=== PATIENT | female | born 1955 ===

== ENCOUNTER 2020-08-10 11:25 | Inpatient (IN) | payer OTHER ==
[~2020-08-10 11:25] MED LIST: Barium Sulfate w/v 2.1% Oral Susp 450 ML Bottle PO SCH
[2020-08-10] MEDS ORDERED: Piperacillin/Tazobactam 3.375 GM in Sodium Chloride 0.9% 100 ML IV SCH (15:30)
--- NOTE | 2020-08-10 15:31 | PCM.HP ---
H&P History of Present Illness - General Date of Service: 08/10/20 Admit Problem/Dx: 65-year-old lady with a history of congenital hip dysplasia, seizures, malnutrition. Patient was admitted to acute care with acute hypoxemic respiratory failure secondary to pneumonia. Hospitalization was complicated with acute kidney injury, urinary tract infection, sepsis with shock liver. the patient was transferred to our facility for further physical and occupational therapy Prior to discharge the patient was noted to have leukocytosis, elevated pro calcitonin level. as families explaining the patient's has a restraining order against her. The patient's brother has been appointed as a guardian. the patient is feeling a little bit tired. Had recent cough with sputum production. No chills. No abdominal pain but had loose bowel movements, 3 or 4 yesterday but none today. Source of Information: Patient, Provider (dr. Frausto) Generalized Pain Score (Numeric/FACES): 6 - Related Data Allergies/Adverse Reactions: Allergies Allergy/AdvReac Type Severity Reaction Status Date / Time No Known Allergies Allergy Verified 08/10/20 11:50 Home Medications: Home Meds Acetaminophen 1,000 mg PO Q6HR PRN 08/10/20 [History] Gabapentin [Neurontin] 200 mg PO TID 08/10/20 [History] traZODone HCl [Trazodone HCl] 50 mg PO BEDTIME 08/10/20 [History] Past Medical History HEENT History: Reports: Impaired Vision, Other (See Below) Other HEENT History: Since admission to [facility] Cardiovascular History: Reports: Afib Genitourinary History: Reports: Urinary Incontinence, Other (See Below) Other Genitourinary History: at times Musculoskeletal History: Reports: Arthritis, Osteoarthritis Psychiatric History: Reports: Anxiety, Depression Hematologic History: Reports: Anemia - Infectious Disease History Infectious Disease History: Reports: Chicken Pox, Measles, Mumps - Past Surgical History HEENT Surgical History: Reports: None Cardiovascular Surgical History: Reports: None Female Surgical History: Reports: None Musculoskeletal Surgical History: Reports: Hip Replacement, Other (See Below) Other Musculoskeletal Surgeries/Procedures:: bilateral and total 10 surgeries on hips. Congenital hip dysplasia Social & Family History - Family History Family Medical History: No Pertinent Family History - Tobacco Use Tobacco Use Status *Q: Former Tobacco User Used Tobacco, but Quit: Yes Month/Year Tobacco Last Used: June 2011 Second Hand Smoke Exposure: No - Caffeine Use Caffeine Use: Reports: Coffee - Recreational Drug Use Recreational Drug Use: No H&P Review of Systems - Review of Systems: Review Of Systems: See Below General: Reports: Chills, Weakness. Denies: Fever Pulmonary: Denies: Shortness of Breath Cardiovascular: Reports: Edema. Denies: Chest Pain Gastrointestinal: Reports: Diarrhea. Denies: Abdominal Pain Genitourinary: Denies: Dysuria Neurological: Denies: Confusion Exam - Exam Exam: See Below - Exam Quality Assessment: No: Supplemental Oxygen General: Alert, Oriented, Other (cachectic) Neck: Supple Lungs: Clear to Auscultation, Normal Respiratory Effort. No: Wheezing Cardiovascular: Regular Rate, Regular Rhythm GI/Abdominal Exam: Normal Bowel Sounds, Soft, Non-Tender Extremities: Pedal Edema Neuro Extensive - Mental Status: Alert, Oriented x3, Normal Mood/Affect - Patient Data Lab Results Last 24 hrs: laboratory studies were reviewed from [facility] On 10 August procralcitonin level was 9.5 White blood cell count 12.9, hemoglobin 8.2, platelet count 237 B UN 26, sodium 138, potassium 3.6, creatinine 0.7 - Problem List (1) Weakness acquired in intensive care unit SNOMED Code(s): 18932874 ICD Code: R53.1 - WEAKNESS Status: Acute Current Visit: Yes (2) Leukocytosis SNOMED Code(s): 879040023, 069231144 ICD Code: D72.829 - ELEVATED WHITE BLOOD CELL COUNT, UNSPECIFIED Status: Acute Current Visit: Yes (3) Anemia SNOMED Code(s): 964405673 ICD Code: D64.9 - ANEMIA, UNSPECIFIED Status: Acute Current Visit: Yes (4) Seizure disorder SNOMED Code(s): 949985467 ICD Code: G40.909 - EPILEPSY, UNSP, NOT INTRACTABLE, WITHOUT STATUS EPILEPTICUS Status: Acute Current Visit: Yes (5) Malnutrition of moderate degree SNOMED Code(s): 733714462 ICD Code: E44.0 - MODERATE PROTEIN-CALORIE MALNUTRITION Status: Acute Current Visit: Yes Problem List Initiated/Reviewed/Updated: Yes Orders Last 24hrs: Active Orders 24 hr Category Date Time Status Influenza Vaccine Charge [RC] .DISCHARGE Care 08/10/20 14:25 Active Abdomen Pelvis w Cont [CT] Routine Exams 08/10/20 15:21 Ordered Chest w Cont [CT] Routine Exams 08/10/20 15:22 Ordered BASIC METABOLIC PANEL,BMP [CHEM] AM Lab 08/11/20 05:15 Ordered CBC WITH AUTO DIFF [HEME] AM Lab 08/11/20 05:15 Ordered CLOSTRIDIUM DIFFICILE TOX RFLX [MREF] Routine Lab 08/10/20 15:22 Ordered CULTURE URINE [RM] Routine Lab 08/10/20 15:20 Ordered Gabapentin [Neurontin] Med 08/10/20 21:00 Ordered 200 mg PO TID Pharmacy to Dose - InFluenza V [Pharmacy to Dose - Med 08/11/20 09:00 Active InFluenza Vaccine] 1 each IM DAILY Piperacillin/Tazobactam [Zosyn] 3.375 gm Med 08/10/20 15:30 Ordered Sodium Chloride 0.9% [Normal Saline] 100 ml IV Q8H traZODone Med 08/10/20 21:00 Ordered 50 mg PO BEDTIME Isolation [COMM] Stat Oth 08/10/20 15:23 Ordered Medication Orders Gabapentin (Neurontin) 200 mg PO TID [facility] Piperacillin Sod/Tazobactam (Sod 3.375 gm/ Sodium Chloride) 100 mls @ 200 mls/hr IV Q8H [facility] Influenza Virus Vaccine (Pharmacy To Dose - Influenza Vaccine) 1 each IM DAILY [facility] Trazodone HCl (Trazodone) 50 mg PO BEDTIME [facility] Assessment/Plan Comment:: Hospitalization was complicated with acute kidney injury, urinary tract infection, sepsis with shock liver. the patient was transferred to our facility for further physical and occupational therapy Prior to discharge the patient was noted to have leukocytosis, elevated pro calcitonin level. recent leukocytosis, elevated pro-calcitonin level Was followed by ID and recommendation was to do CT chest, abdomen, pelvis Recommendation was to continue treatment with Zosyn It appears that the leukocytosis was actually improving With the diarrhea will also check for C. difficile Urine analysis and culture Malnutrition vitamin D deficiency Lower extremity edema was on TPN earlier Nutrition consults Nutritional supplements Use Zackary stocking Acute hypoxemic respiratory failure secondary to pneumonia Appears resolved history of seizure disorder Now off medication We'll monitor CODE STATUS was discussed The patient wants to be full code brother is the power of ultrasound technologist sonographer Apparently the does not know that the patient is in our institution and the patient would not want him to know it. d/w dr. Frausto
[2020-08-10] MEDS ORDERED: Ondansetron 4 MG/2 ML SDV IVPUSH PRN (15:40)
[2020-08-10] MEDS ORDERED: Iopamidol 612 MG/ML 100 ML Bottle IVPUSH ONE (15:40)
[2020-08-10] MEDS ORDERED: Temazepam 15 MG Cap PO PRN (15:40)
[2020-08-10] MEDS ORDERED: Piperacillin/Tazobactam 3.375 GM in Sodium Chloride 0.9% 100 ML IV ONE (16:00)
[2020-08-10] MEDS: Sodium Chloride 0.9% 10 ML Syringe FLUSH PRN ×2 (16:42→22:44)
[2020-08-10] MEDS: Acetaminophen 325 MG Tab PO PRN (20:22)
[2020-08-10] MEDS: Gabapentin 100 MG Cap PO SCH (20:23)
[2020-08-10] MEDS: traZODone 50 MG Tab PO SCH (20:23)
[2020-08-10] MEDS: Heparin Sodium 5,000 Units/ML Vial SUBCUT SCH (22:42)
[2020-08-11] MEDS: Acetaminophen 325 MG Tab PO PRN ×2 (00:31→14:12)
[2020-08-11] MEDS: Sodium Chloride 0.9% 10 ML Syringe FLUSH PRN (00:33)
[2020-08-11] MEDS: Piperacillin/Tazobactam 3.375 GM in Sodium Chloride 0.9% 100 ML IV SCH ×3 (00:34→17:38)
[2020-08-11] MEDS: Heparin Sodium 5,000 Units/ML Vial SUBCUT SCH (05:48)
[2020-08-11] MEDS: Barium Sulfate w/v 2.1% Oral Susp 450 ML Bottle PO SCH ×2 (06:37→08:16)
[2020-08-11 06:56] LABS: ANION GAP 13.5 mEq/L (7-13); CHLORIDE,CL 108 mmol/L (98-107); SODIUM,NA 142 mmol/L (136-145)
[2020-08-11] MEDS: Gabapentin 100 MG Cap PO SCH ×3 (08:15→22:05)
[2020-08-11] MEDS ORDERED: Iopamidol 612 MG/ML 100 ML Bottle IVPUSH ONE (09:00)
[2020-08-11] MEDS ORDERED: LORazepam 1 MG Tab PO PRN (13:03)
--- NOTE | 2020-08-11 13:42 | CT ---
EXAMINATION: Chest Abdomen Pelvis w Cont SEX: Female AGE: 65 years CLINICAL HISTORY: 65-year-old 112 pound female with abnormally elevated white blood cell count (leukocytosis). Scan technique: Volume acquisition of data from the chest, abdomen and pelvis obtained after oral ingestion 2 bottles Redicat barium and during/after intravenous infusion 100 cc nonionic Isovue contrast at 3 cc/s via injector while patient was lying supine on the Siemens multislice scanner [place], [place]. All data archived in the PACS system for storage, reformatting axial/sagittal/coronal planes and study. Interpretation: Abnormal. 1. Large dependent subpulmonic pleural effusions filling over one-third of both hemithoraces. 2. Underlying right upper lobe and bilateral lower lobe atelectasis (infiltrates?). No air bronchograms. No peripheral interstitial "groundglass" lung densities. No significant hilar or mediastinal lymphadenopathy. 3. Large heart but no pulmonary vascular congestion or alveolar edema. No pericardial effusion. 4. Normal caliber thoracic aorta. No sign of aneurysm or retroperitoneal dissection. 5. Apical pleural scarring. No suspicious lung mass. 6. Bilateral total hip replacements (orthopedic prosthesis). Chronic multilevel lower thoracic disc disease. 7. Distended gallbladder RUQ. No gallstones. Liver, stomach, spleen, pancreas and adrenal glands unremarkable. Symmetric normal kidneys, i.e. normal size, configuration and axis. No renal cortical mass, nephrolithiasis or signs of obstructive uropathy. Bladder obscured by prosthetic "hardening" artifacts. 8. Calcifications normal caliber abdominal aorta. No sign of aortoiliac aneurysm. No abdominal mass lesion, mesenteric or retroperitoneal lymphadenopathy, or free intraperitoneal air. No bowel obstruction. CONCLUSION: Large bibasilar pleural effusions. Underlying multilobar atelectasis. Total hip replacements. Chronic multilevel disc disease. No tumor mass or lymphadenopathy.
[2020-08-11] MEDS: Lidocaine 5% 700 MG Patch TRDERM SCH (14:11)
--- NOTE | 2020-08-11 15:08 | PCM.PN ---
- General Info Date of Service: 08/11/20 Admission Dx/Problem (Free Text): 65-year-old lady with a history of congenital hip dysplasia, seizures, malnutrition. Patient was admitted to acute care with acute hypoxemic respiratory failure secondary to pneumonia. Hospitalization was complicated with acute kidney injury, urinary tract infection, sepsis with shock liver. the patient was transferred to our facility for further physical and occupational therapy Prior to discharge the patient was noted to have leukocytosis, elevated pro calcitonin level. per the sister: the patient's has a restraining order against her. The patient's brother has been appointed as a guardian. has had mod to severe headache associated with anxiety overnight, has been crying on/off continued to have diarrhea with incontinence no abd pain, no fever has edema and sob Functional Status: Reports: Tolerating Diet, Ambulating - Review of Systems Pulmonary: Reports: Shortness of Breath Cardiovascular: Reports: Edema. Denies: Chest Pain Gastrointestinal: Reports: Diarrhea. Denies: Abdominal Pain Genitourinary: Denies: Dysuria Neurological: Denies: Confusion - Patient Data Vitals - Most Recent: Last Vital Signs Temp 99.1 F 08/11/20 08:00 Pulse 96 08/11/20 08:00 Resp 18 08/11/20 08:00 BP 114/74 08/11/20 08:00 Pulse Ox 94 L 08/11/20 08:00 Weight - Most Recent: 114 lb 3.2 oz I&O - Last 24 Hours: Intake & Output 08/10/20 08/11/20 08/11/20 22:59 06:59 14:59 Intake Total 175 302 450 Output Total 500 Balance 175 -198 450 Lab Results Last 24 Hours: Laboratory Results - last 24 hr 08/10/20 08/11/20 08/11/20 Range/Units 17:02 06:06 06:06 WBC 10.9 H (5.0-10.0) 10^3/uL RBC 2.42 L (4.2-5.4) 10^6/uL Hgb 7.5 L (12.0-16.0) g/dL Hct 23.5 L (37.0-47.0) % MCV 97.1 (80-100) fL MCH 31.0 (27.0-34.0) pg MCHC 31.9 L (33.0-35.0) g/dL Plt Count 297 (150-450) 10^3/uL Neut % (Auto) 78.0 H (42.2-75.2) % Lymph % (Auto) 9.1 L (20.5-50.1) % Thurston % (Auto) 11.0 H (2-8) % Eos % (Auto) 1.7 (1.0-3.0) % Baso % (Auto) 0.2 (0.0-1.0) % Sodium 142 (136-145) mmol/L Potassium 3.5 (3.5-5.1) mmol/L Chloride 108 H (98-107) mmol/L Carbon Dioxide 24 (21-32) mmol/L Anion Gap 13.5 H (7-13) mEq/L BUN 18 (7-18) mg/dL Creatinine 0.76 (0.55-1.02) mg/dL Est Cr Clr Drug Dosing 61.15 mL/min Estimated GFR (MDRD) > 60 Glucose 77 (74-99) mg/dL POC Glucose 121 H (70-105) mg/dl Calcium 7.4 L (8.5-10.1) mg/dL Phosphorus 3.9 (2.6-4.7) mg/dL Magnesium 1.4 L (1.8-2.4) mg/dL Med Orders - Current: Current Medications Acetaminophen (Tylenol) 650 mg PO Q4H PRN PRN Reason: Pain (Mild 1-3)/fever Last Admin: 08/11/20 14:12 Dose: 650 mg Documented by: Hydrocodone Bitart/Acetaminophen (Dewy Rose 325-5 Mg) 1 tab PO Q4H PRN PRN Reason: Pain (moderate 4-6) Furosemide (Lasix) 20 mg PO DAILY [facility] Gabapentin (Neurontin) 200 mg PO TID [facility] Last Admin: 08/11/20 14:11 Dose: 200 mg Documented by: Piperacillin Sod/Tazobactam (Sod 3.375 gm/ Sodium Chloride) 100 mls @ 200 mls/hr IV Q8H [facility] Last Admin: 08/11/20 08:16 Dose: 200 mls/hr Documented by: Influenza Virus Vaccine (Pharmacy To Dose - Influenza Vaccine) 1 each IM DAILY [facility] Last Admin: 08/11/20 14:14 Dose: Not Given Documented by: Lidocaine (Lidoderm 5%) 700 mg TRDERM DAILY [facility] Last Admin: 08/11/20 14:11 Dose: 700 mg Documented by: Lorazepam (Ativan) 1 mg PO Q6H PRN PRN Reason: anxiety, headache Last Admin: 08/11/20 14:12 Dose: 1 mg Documented by: Magnesium Oxide (Magnesium Oxide) 250 mg PO BIDMEALS [facility] Stop: 08/12/20 18:01 Last Admin: 08/11/20 14:11 Dose: 250 mg Documented by: Miscellaneous Information (Remove Patch) 1 ea TRDERM BEDTIME [facility] Multivitamins/Minerals (Vitamins And Minerals) 1 tab PO WITHBREAKFAST [facility] Ondansetron HCl (Zofran) 4 mg IVPUSH Q6H PRN PRN Reason: Nausea/Vomiting Oxycodone HCl (Oxycodone) 5 mg PO Q6H PRN PRN Reason: Pain (severe 7-10) Potassium Chloride (Klor-Con 10) 20 meq PO BEDTIME [facility] Sodium Chloride (Saline Flush) 10 ml FLUSH ASDIRECTED PRN PRN Reason: Keep Vein Open Last Admin: 08/11/20 00:33 Dose: 10 ml Documented by: Trazodone HCl (Trazodone) 50 mg PO BEDTIME [facility] Last Admin: 08/10/20 20:23 Dose: 50 mg Documented by: Vancomycin HCl (Vancocin 125 Mg Capsule) 125 mg PO QID [facility] Discontinued Medications Barium Sulfate (Readi-Cat 2) 450 ml PO Q1H [facility] Stop: 08/11/20 08:01 Last Admin: 08/11/20 08:16 Dose: 450 ml Documented by: Heparin Sodium (Porcine) (Heparin Sodium) 5,000 units SUBCUT Q8HR [facility] Last Admin: 08/11/20 05:48 Dose: 5,000 units Documented by: Piperacillin Sod/Tazobactam (Sod 3.375 gm/ Sodium Chloride) 100 mls @ 200 mls/hr IV Q6H [facility] Piperacillin Sod/Tazobactam (Sod 3.375 gm/ Sodium Chloride) 100 mls @ 200 mls/hr IV ONETIME ONE Stop: 08/10/20 16:29 Last Admin: 08/10/20 16:41 Dose: 200 mls/hr Documented by: Iopamidol (Isovue-300 (61%)) 100 ml IVPUSH ONETIME ONE Stop: 08/10/20 15:41 Last Admin: 08/10/20 22:45 Dose: Not Given Documented by: Iopamidol (Isovue-300 (61%)) 100 ml IVPUSH ONETIME ONE Stop: 08/11/20 09:01 Last Admin: 08/11/20 09:19 Dose: 100 ml Documented by: Temazepam (Restoril) 15 mg PO BEDTIME PRN PRN Reason: Sleep Last Admin: 08/11/20 02:16 Dose: 15 mg Documented by: - Exam General: Alert, Oriented, Other (cachectic) Lungs: Decreased Breath Sounds Cardiovascular: Regular Rate, Regular Rhythm GI/Abdominal Exam: Normal Bowel Sounds, Soft, Non-Tender Extremities: Pedal Edema Skin: Warm, Dry Neurological: No New Focal Deficit Psy/Mental Status: Alert, Anxious Sepsis Event Note - Evaluation Sepsis Screening Result: No Definite Risk - Focused Exam Vital Signs: Vital Signs Temp Pulse Resp BP Pulse Ox 08/11/20 08:00 99.1 F 96 18 114/74 94 L - Problem List & Annotations (1) Weakness acquired in intensive care unit SNOMED Code(s): 05169756 Code(s): R53.1 - WEAKNESS Status: Acute Current Visit: Yes (2) Leukocytosis SNOMED Code(s): 824373412, 553849379 Code(s): D72.829 - ELEVATED WHITE BLOOD CELL COUNT, UNSPECIFIED Status: Acute Current Visit: Yes (3) Anemia SNOMED Code(s): 699679651 Code(s): D64.9 - ANEMIA, UNSPECIFIED Status: Acute Current Visit: Yes (4) Seizure disorder SNOMED Code(s): 164006299 Code(s): G40.909 - EPILEPSY, UNSP, NOT INTRACTABLE, WITHOUT STATUS EPILEPTIC US Status: Acute Current Visit: Yes (5) Malnutrition of moderate degree SNOMED Code(s): 443004637 Code(s): E44.0 - MODERATE PROTEIN-CALORIE MALNUTRITION Status: Acute Current Visit: Yes (6) Pleural effusion SNOMED Code(s): 00380120 Code(s): J90 - PLEURAL EFFUSION, NOT ELSEWHERE CLASSIFIED Status: Acute Current Visit: Yes (7) Diarrhea SNOMED Code(s): 81122166 Code(s): R19.7 - DIARRHEA, UNSPECIFIED Status: Acute Current Visit: Yes - Problem List Review Problem List Initiated/Reviewed/Updated: Yes - My Orders Last 24 Hours: My Active Orders 08/10/20 14:25 Influenza Vaccine Charge [RC] .DISCHARGE 08/10/20 15:23 Isolation [COMM] Stat 08/10/20 15:40 Patient Status [ADT] Routine Oxygen Therapy [RC] .PRN Up With Assistance [RC] ASDIRECTED VTE/DVT Education [RC] , Vital Signs [RC] 08,20 Acetaminophen [TylenoL] 650 mg PO Q4H PRN Ondansetron [Zofran] 4 mg IVPUSH Q6H PRN Sodium Chloride 0.9% [Saline Flush] 10 ml FLUSH ASDIRECTED PRN Peripheral IV Insertion Adult [OM.PC] Routine Saline Lock Insert [OM.PC] Routine Resuscitation Status Routine 08/10/20 15:42 Antiembolic Devices [RC] 08,20 Peripheral IV Care [RC] 08,20 Antiembolic Hose [OM.PC] Per Unit Routine 08/10/20 15:43 OT Evaluation and Treatment [CONS] Routine PT Evaluation and Treatment [CONS] Routine 08/10/20 16:42 Central Line Assessment [RC] 08/10/20 16:43 Communication Order [RC] 08/10/20 Dinner Regular Diet [DIET] 08/10/20 18:30 CLOSTRIDIUM DIFFICILE TOX RFLX [MREF] Routine 08/10/20 21:00 Gabapentin [Neurontin] 200 mg PO TID traZODone 50 mg PO BEDTIME 08/11/20 00:00 Piperacillin/Tazobactam [Zosyn] 3.375 gm Sodium Chloride 0.9% [Normal Saline] 100 ml IV Q8H 08/11/20 00:40 CULTURE URINE [RM] Routine 08/11/20 09:00 Pharmacy to Dose - InFluenza V [Pharmacy to Dose - InFluenza Vaccine] 1 each IM DAILY 08/11/20 09:05 Communication Order [RC] DAILY 08/11/20 09:43 SCD [Sequential Compression Device] [OM.PC] Routine 08/11/20 09:44 Antiembolic Devices [RC] PER UNIT ROUTINE 08/11/20 09:45 Magnesium Oxide 250 mg PO BIDMEALS 08/11/20 13:00 Lidocaine 5% [Lidoderm 5%] 700 mg TRDERM DAILY 08/11/20 13:03 LORazepam [Ativan] 1 mg PO Q6H PRN 08/11/20 13:04 Acetaminophen/HYDROcodone [Dewy Rose 325-5 MG] 1 tab PO Q4H PRN oxyCODONE 5 mg PO Q6H PRN 08/11/20 15:00 Furosemide [Lasix] 20 mg PO DAILY 08/11/20 17:00 Vancomycin [Vancocin 125 MG Capsule] 125 mg PO QID 08/11/20 21:00 Potassium Chloride [Klor-Con 10] 20 meq PO BEDTIME Remove Patch 1 ea TRDERM BEDTIME 08/12/20 08:00 Multivitamins/Minerals [Vitamins and Minerals] 1 tab PO WITHBREAKFAST 08/13/20 05:11 MAGNESIUM [CHEM] AM PHOSPHORUS [CHEM] AM 08/13/20 12:48 PROCALCITONIN [REF] Routine 08/14/20 05:15 BASIC METABOLIC PANEL,BMP [CHEM] AM CBC WITH AUTO DIFF [HEME] AM - Plan Plan:: Hospitalization was complicated with acute kidney injury, urinary tract infection, sepsis with shock liver. the patient was transferred to our facility for further physical and occupational therapy Prior to discharge the patient was noted to have leukocytosis, elevated pro calcitonin level. recent leukocytosis, elevated pro-calcitonin level might relate to pneumonia - as was questioned on ct - aspiration pneumonia is possible might relate to diarrhea - cdiff - check for that Urine cx: pending will continue treatment with Zosyn add flagyl b/l pleural effusion, leg edema likley related to malnutrition will encourage protein intake start lasix with potassium supplement follow elytes periodically Malnutrition vitamin D deficiency Lower extremity edema was on TPN earlier Nutrition consults Nutritional supplements Use Zackary stocking Acute hypoxemic respiratory failure secondary to pneumonia Appears resolved history of seizure disorder Now off medication We'll monitor anxiety, headache will add ativan prn for anxiety tylenol, hydrocodone, oxycodone as needed for mild, moderate, severe pain CODE STATUS was discussed The patient wants to be full code dvt prophylaxis due to very low sq fat will hold lovenox, heparin use scd and mobilization brother is the power of staff attorney Apparently the does not know that the patient is in our institution and the patient would not want him to know it. d/w pt and sister
[2020-08-11] MEDS: Furosemide 20 MG Tab PO SCH (17:36)
[2020-08-11] MEDS: Vancomycin 125 MG Cap PO SCH ×2 (17:36→22:06)
[2020-08-11] MEDS: oxyCODONE 5 MG Tab PO PRN (17:45)
[2020-08-11] MEDS ORDERED: Acetaminophen 325 MG Tab PO SCH (21:00)
[2020-08-11] MEDS ORDERED: LORazepam 0.5 MG Tab PO SCH (21:00)
[2020-08-11] MEDS: Acetaminophen 325 MG Tab PO SCH (22:03)
[2020-08-11] MEDS: LORazepam 1 MG Tab PO SCH (22:04)
[2020-08-11] MEDS: traZODone 50 MG Tab PO SCH (22:05)
[2020-08-11] MEDS: Naproxen 250 MG Tab PO SCH (22:05)
[2020-08-11] MEDS: Potassium Chloride 10 MEQ Tab.ER PO SCH (22:06)
[2020-08-12] MEDS: Piperacillin/Tazobactam 3.375 GM in Sodium Chloride 0.9% 100 ML IV SCH ×3 (00:14→15:31)
[2020-08-12] MEDS: Sodium Chloride 0.9% 10 ML Syringe FLUSH PRN ×2 (00:14→07:32)
[2020-08-12] MEDS: LORazepam 1 MG Tab PO SCH ×2 (09:11→22:08)
[2020-08-12] MEDS: Multivitamins, Therapeutic with Minerals Tab PO SCH (09:11)
[2020-08-12] MEDS: Furosemide 20 MG Tab PO SCH (09:11)
[2020-08-12] MEDS: Naproxen 250 MG Tab PO SCH (09:11)
[2020-08-12] MEDS: Gabapentin 100 MG Cap PO SCH ×3 (09:11→22:09)
[2020-08-12] MEDS: Vancomycin 125 MG Cap PO SCH ×4 (09:12→22:08)
[2020-08-12] MEDS: Acetaminophen 325 MG Tab PO SCH ×3 (09:12→22:08)
[2020-08-12] MEDS: Lidocaine 5% 700 MG Patch TRDERM SCH (09:12)
--- NOTE | 2020-08-12 11:04 | PCM.PN ---
- General Info Date of Service: 08/12/20 Admission Dx/Problem (Free Text): 65-year-old lady with a history of congenital hip dysplasia, seizures, malnutrition. Patient was admitted to acute care with acute hypoxemic respiratory failure secondary to pneumonia. Hospitalization was complicated with acute kidney injury, urinary tract infection, sepsis with shock liver. the patient was transferred to our facility for further physical and occupational therapy Prior to discharge the patient was noted to have leukocytosis, elevated pro calcitonin level. seems in better mood today, not appearing depressed the watery BMs are turning into more soft stool no associated abd pain no fever Functional Status: Reports: Pain Controlled, Tolerating Diet. Denies: Ambulating - Review of Systems General: Reports: Weakness Cardiovascular: Reports: Edema. Denies: Chest Pain Gastrointestinal: Reports: Diarrhea (soft stool, not watery). Denies: Abdominal Pain Genitourinary: Denies: Dysuria Neurological: Denies: Confusion Psychiatric: Reports: Mood Lability - Patient Data Vitals - Most Recent: Last Vital Signs Temp 98.3 F 08/12/20 08:23 Pulse 86 08/12/20 08:23 Resp 20 08/12/20 08:23 BP 122/81 08/12/20 08:23 Pulse Ox 96 08/12/20 08:23 Weight - Most Recent: 115 lb 3.2 oz I&O - Last 24 Hours: Intake & Output 08/11/20 08/12/20 08/12/20 22:59 06:59 14:59 Intake Total 400 500 Balance 400 500 Abdoul Results Last 24 Hours: Microbiology 08/10/20 18:30 Clostridioides difficile (PCR) - Final Stool / Feces - Stool, Liquid Clostridioides difficile Toxin Assay - Final 08/11/20 00:40 Urine Culture - Preliminary Urine, Clean Catch Med Orders - Current: Current Medications Acetaminophen (Tylenol) 650 mg PO Q4H PRN PRN Reason: Pain (Mild 1-3)/fever Last Admin: 08/11/20 14:12 Dose: 650 mg Documented by: Acetaminophen (Tylenol) 650 mg PO TID [facility] Last Admin: 08/12/20 09:12 Dose: 650 mg Documented by: Hydrocodone Bitart/Acetaminophen ([place] 325-5 Mg) 1 tab PO Q4H PRN PRN Reason: Pain (moderate 4-6) Furosemide (Lasix) 20 mg PO DAILY [facility] Last Admin: 08/12/20 09:11 Dose: 20 mg Documented by: Gabapentin (Neurontin) 200 mg PO TID [facility] Last Admin: 08/12/20 09:11 Dose: 200 mg Documented by: Piperacillin Sod/Tazobactam (Sod 3.375 gm/ Sodium Chloride) 100 mls @ 200 mls/hr IV Q8H [facility] Last Infusion: 08/12/20 08:17 Dose: Infused Documented by: Influenza Virus Vaccine (Pharmacy To Dose - Influenza Vaccine) 1 each IM DAILY [facility] Last Admin: 08/12/20 09:15 Dose: Not Given Documented by: Lidocaine (Lidoderm 5%) 700 mg TRDERM DAILY [facility] Last Admin: 08/12/20 09:12 Dose: 700 mg Documented by: Lorazepam (Ativan) 1 mg PO BID [facility] Last Admin: 08/12/20 09:11 Dose: 1 mg Documented by: Magnesium Oxide (Magnesium Oxide) 250 mg PO BIDMEALS [facility] Stop: 08/12/20 18:01 Last Admin: 08/12/20 09:11 Dose: 250 mg Documented by: Miscellaneous Information (Remove Patch) 1 ea TRDERM BEDTIME [facility] Last Admin: 08/11/20 22:07 Dose: 1 ea Documented by: Multivitamins/Minerals (Vitamins And Minerals) 1 tab PO WITHBREAKFAST [facility] Last Admin: 08/12/20 09:11 Dose: 1 tab Documented by: Naproxen (Naprosyn) 250 mg PO Q12HR [facility] Last Admin: 08/12/20 09:11 Dose: 250 mg Documented by: Ondansetron HCl (Zofran) 4 mg IVPUSH Q6H PRN PRN Reason: Nausea/Vomiting Oxycodone HCl (Oxycodone) 5 mg PO Q6H PRN PRN Reason: Pain (severe 7-10) Last Admin: 08/11/20 17:45 Dose: 5 mg Documented by: Potassium Chloride (Klor-Con 10) 20 meq PO BEDTIME [facility] Last Admin: 08/11/20 22:06 Dose: 20 meq Documented by: Sodium Chloride (Saline Flush) 10 ml FLUSH ASDIRECTED PRN PRN Reason: Keep Vein Open Last Admin: 08/12/20 07:32 Dose: 10 ml Documented by: Trazodone HCl (Trazodone) 50 mg PO BEDTIME [facility] Last Admin: 08/11/20 22:05 Dose: 50 mg Documented by: Vancomycin HCl (Vancocin 125 Mg Capsule) 125 mg PO QID [facility] Last Admin: 08/12/20 09:12 Dose: 125 mg Documented by: Discontinued Medications Acetaminophen (Tylenol) 650 mg PO BID [facility] Barium Sulfate (Readi-Cat 2) 450 ml PO Q1H [facility] Stop: 08/11/20 08:01 Last Admin: 08/11/20 08:16 Dose: 450 ml Documented by: Heparin Sodium (Porcine) (Heparin Sodium) 5,000 units SUBCUT Q8HR [facility] Last Admin: 08/11/20 05:48 Dose: 5,000 units Documented by: Piperacillin Sod/Tazobactam (Sod 3.375 gm/ Sodium Chloride) 100 mls @ 200 mls/hr IV Q6H [facility] Piperacillin Sod/Tazobactam (Sod 3.375 gm/ Sodium Chloride) 100 mls @ 200 mls/hr IV ONETIME ONE Stop: 08/10/20 16:29 Last Admin: 08/10/20 16:41 Dose: 200 mls/hr Documented by: Iopamidol (Isovue-300 (61%)) 100 ml IVPUSH ONETIME ONE Stop: 08/10/20 15:41 Last Admin: 08/10/20 22:45 Dose: Not Given Documented by: Iopamidol (Isovue-300 (61%)) 100 ml IVPUSH ONETIME ONE Stop: 08/11/20 09:01 Last Admin: 08/11/20 09:19 Dose: 100 ml Documented by: Lorazepam (Ativan) 1 mg PO Q6H PRN PRN Reason: anxiety, headache Last Admin: 08/11/20 14:12 Dose: 1 mg Documented by: Lorazepam (Ativan) 0.5 mg PO BID [facility] Temazepam (Restoril) 15 mg PO BEDTIME PRN PRN Reason: Sleep Last Admin: 08/11/20 02:16 Dose: 15 mg Documented by: - Exam General: Other (cachectic) Neck: Supple Lungs: Clear to Auscultation, Normal Respiratory Effort Cardiovascular: Regular Rate, Regular Rhythm GI/Abdominal Exam: Normal Bowel Sounds, Soft, Non-Tender Back Exam: Other (edema on buttock area) Extremities: Pedal Edema Skin: Warm, Other (sacral decubitus ulcer with yellow slough, some patchy rash apearing changes, - appears improved from as pictured on [employer]'s Epic - wound care note ) Psy/Mental Status: Alert, Normal Affect, Normal Mood Sepsis Event Note - Evaluation Sepsis Screening Result: No Definite Risk - Focused Exam Vital Signs: Vital Signs Temp Pulse Resp BP Pulse Ox 08/12/20 08:23 98.3 F 86 20 122/81 96 - Problem List & Annotations (1) Weakness acquired in intensive care unit SNOMED Code(s): 77767486 Code(s): R53.1 - WEAKNESS Status: Acute Current Visit: Yes (2) Leukocytosis SNOMED Code(s): 289550868, 085571885 Code(s): D72.829 - ELEVATED WHITE BLOOD CELL COUNT, UNSPECIFIED Status: Acute Current Visit: Yes (3) Anemia SNOMED Code(s): 147136437 Code(s): D64.9 - ANEMIA, UNSPECIFIED Status: Acute Current Visit: Yes (4) Seizure disorder SNOMED Code(s): 850528319 Code(s): G40.909 - EPILEPSY, UNSP, NOT INTRACTABLE, WITHOUT STATUS EPILEPTICUS Status: Acute Current Visit: Yes (5) Malnutrition of moderate degree SNOMED Code(s): 931288765 Code(s): E44.0 - MODERATE PROTEIN-CALORIE MALNUTRITION Status: Acute Current Visit: Yes (6) Pleural effusion SNOMED Code(s): 51060973 Code(s): J90 - PLEURAL EFFUSION, NOT ELSEWHERE CLASSIFIED Status: Acute Current Visit: Yes (7) C. difficile colitis SNOMED Code(s): 997450594 Code(s): A04.72 - ENTEROCOLITIS D/T CLOSTRIDIUM DIFFICILE, NOT SPCF RECUR Status: Acute Current Visit: Yes (8) Decubitus ulcer SNOMED Code(s): 554913641 Code(s): L89.90 - PRESSURE ULCER OF UNSPECIFIED SITE, UNSPECIFIED STAGE Status: Acute Current Visit: Yes - Problem List Review Problem List Initiated/Reviewed/Updated: Yes - My Orders Last 24 Hours: My Active Orders 08/11/20 13:00 Lidocaine 5% [Lidoderm 5%] 700 mg TRDERM DAILY 08/11/20 13:04 Acetaminophen/HYDROcodone [[place] 325-5 MG] 1 tab PO Q4H PRN oxyCODONE 5 mg PO Q6H PRN 08/11/20 15:00 Furosemide [Lasix] 20 mg PO DAILY 08/11/20 17:00 Vancomycin [Vancocin 125 MG Capsule] 125 mg PO QID 08/11/20 21:00 Acetaminophen [TylenoL] 650 mg PO TID LORazepam [Ativan] 1 mg PO BID Naproxen [Naprosyn] 250 mg PO Q12HR Potassium Chloride [Klor-Con 10] 20 meq PO BEDTIME Remove Patch 1 ea TRDERM BEDTIME 08/12/20 08:00 Multivitamins/Minerals [Vitamins and Minerals] 1 tab PO WITHBREAKFAST 08/12/20 09:33 Wound Care [RC] Q12HR 08/12/20 09:38 Specialty Bed [OM.PC] Routine 08/13/20 05:11 MAGNESIUM [CHEM] AM PHOSPHORUS [CHEM] AM 08/13/20 12:48 PROCALCITONIN [REF] Routine 08/14/20 05:15 BASIC METABOLIC PANEL,BMP [CHEM] AM CBC WITH AUTO DIFF [HEME] AM - Plan Plan:: Hospitalization was complicated with acute kidney injury, urinary tract infection, sepsis with shock liver. the patient was transferred to our facility for further physical and occupational therapy Prior to discharge the patient was noted to have leukocytosis, elevated pro calcitonin level. recent leukocytosis, elevated pro-calcitonin level might relate to pneumonia - as was questioned on ct - aspiration pneumonia is possible likely related to c. diff Ucx- contaminant - already on Zosyn will continue treatment with Zosyn - plan to stop on Friday if no new events will not add flagyl - added Vanc PO to cover C diff, cont zosyn to cover asp. pneumonia b/l pleural effusion, leg edema likely related to malnutrition will encourage protein intake cont lasix with potassium supplement follow elytes on Friday Malnutrition vitamin D deficiency Lower extremity edema was on TPN earlier Nutrition consults Nutritional supplements Use Zackary stocking anemia hgb 7.5 likely anemia of chronic dx. cont nutrition support, MVI check iron, b12, folate Decubitus ulcer will cont wound care per [facility] rec's on low pressure egg crate frequent repositioning Acute hypoxemic respiratory failure secondary to pneumonia Appears resolved history of seizure disorder Now off medication We'll monitor anxiety, headache will add ativan prn for anxiety tylenol, hydrocodone, oxycodone as needed for mild, moderate, severe pain CODE STATUS was discussed on admission The patient wants to be full code dvt prophylaxis due to very low sq fat will hold lovenox, heparin use scd and mobilization brother is the power of production quality manager - called today with update [phone] - dcds message Apparently the does not know that the patient is in our institution and the patient would not want him to know it.
[2020-08-12] MEDS: Pantoprazole 40 MG Tab.CR PO SCH (18:51)
--- NOTE | 2020-08-12 19:13 | PCM.SN.2 ---
- Free Text/Narrative Note: small amount of blood noted in stool no abd pain likely related to diarrhea and irritation obtained CBC- hgb is stable recheck in AM I will stop NSAID add protonix for potential upper gi source - but it appears less likely
[2020-08-12] MEDS: Potassium Chloride 10 MEQ Tab.ER PO SCH (22:08)
[2020-08-12] MEDS: traZODone 50 MG Tab PO SCH (22:09)
[2020-08-13] MEDS: Piperacillin/Tazobactam 3.375 GM in Sodium Chloride 0.9% 100 ML IV SCH ×2 (01:00→07:45)
[2020-08-13] MEDS: Pantoprazole 40 MG Tab.CR PO SCH ×2 (06:45→16:19)
[2020-08-13] MEDS: Furosemide 20 MG Tab PO SCH (08:21)
[2020-08-13] MEDS: Vancomycin 125 MG Cap PO SCH ×4 (08:21→20:19)
[2020-08-13] MEDS: LORazepam 1 MG Tab PO SCH ×2 (08:22→20:18)
[2020-08-13] MEDS: Gabapentin 100 MG Cap PO SCH ×3 (08:22→20:19)
[2020-08-13] MEDS: Multivitamins, Therapeutic with Minerals Tab PO SCH (08:22)
[2020-08-13] MEDS: Lidocaine 5% 700 MG Patch TRDERM SCH (08:24)
[2020-08-13] MEDS: Acetaminophen 325 MG Tab PO SCH ×3 (08:24→20:18)
[2020-08-13] MEDS: oxyCODONE 5 MG Tab PO PRN (10:52)
[2020-08-13 11:20] LABS: CHLORIDE,CL 106 mmol/L (98-107); SODIUM,NA 140 mmol/L (136-145)
--- NOTE | 2020-08-13 12:31 | PCM.SN.2 ---
- Free Text/Narrative Note: has been eating fairly well, calorie count is about 1600, protein is above 90 g per day Urinating well Weight might be variable with the combination of losing weight with the diuretics and regaining nutrition continues to have frequent but more formed stools Has mild abdominal distention on examination and complaining of 7/10 abdominal pain This is likely secondary to C. difficile White blood cell count is stable Will continue vancomycin, stop Zosyn to help improve C. difficile colitis I think the colitis is more of an issue than pneumonia Follow closely for potential megacolon No further blood in the stool Discontinued nonsteroidals Started Protonix Hemoglobin is stable leg swelling is less Electrolytes are good, continue diuretics continue wound care called AIRAM Jarrett [phone] left message
[2020-08-13] MEDS: Potassium Chloride 10 MEQ Tab.ER PO SCH (20:17)
[2020-08-13] MEDS: traZODone 50 MG Tab PO SCH (20:18)
[2020-08-13] MEDS: Acetaminophen/HYDROcodone 325-5 MG Tab PO PRN (20:19)
[2020-08-14] MEDS: Acetaminophen/HYDROcodone 325-5 MG Tab PO PRN ×2 (02:10→06:21)
[2020-08-14] MEDS: Pantoprazole 40 MG Tab.CR PO SCH ×2 (06:17→16:04)
[2020-08-14] MEDS: Lidocaine 5% 700 MG Patch TRDERM SCH (08:10)
[2020-08-14] MEDS: LORazepam 1 MG Tab PO SCH ×2 (08:11→22:01)
[2020-08-14] MEDS: Gabapentin 100 MG Cap PO SCH ×3 (08:11→22:00)
[2020-08-14] MEDS: Acetaminophen 325 MG Tab PO SCH ×3 (08:11→22:02)
[2020-08-14] MEDS: Vancomycin 125 MG Cap PO SCH ×4 (08:12→22:02)
[2020-08-14] MEDS: Multivitamins, Therapeutic with Minerals Tab PO SCH (08:12)
[2020-08-14] MEDS: Furosemide 20 MG Tab PO SCH (08:12)
--- NOTE | 2020-08-14 12:54 | PCM.PN ---
- General Info Date of Service: 08/14/20 Admission Dx/Problem (Free Text): 65-year-old lady with a history of congenital hip dysplasia, seizures, malnutrition. Patient was admitted to acute care with acute hypoxemic respiratory failure secondary to pneumonia. Hospitalization was complicated with acute kidney injury, urinary tract infection, sepsis with shock liver. the patient was transferred to our facility for further physical and occupational therapy Prior to discharge the patient was noted to have leukocytosis, elevated pro calcitonin level. in the past few days it appears that the headaches has improved. The initially watery bowel movements turned into formed bowel movements and now the diarrhea stopped. There has been some associated abdominal pain that is controlled with pain medications, no no significant bloating with it. small amount of blood noted in the all movements a few days ago but that re solved. Lower extremity edema noted on admission and the patient is on diuretics. She reports good urine output. Wound care is ongoing Functional Status: Reports: Pain Controlled, Tolerating Diet (calorie counts are variable, 8313-7119 /24 hours) - Review of Systems General: Denies: Fever Pulmonary: Denies: Shortness of Breath, Wheezing Cardiovascular: Reports: Edema. Denies: Chest Pain Gastrointestinal: Reports: Abdominal Pain. Denies: Diarrhea Genitourinary: Reports: Frequency. Denies: Dysuria Neurological: Denies: Confusion Psychiatric: Reports: Mood Lability, Anxiety - Patient Data Vitals - Most Recent: Last Vital Signs Temp 98.3 F 08/14/20 08:00 Pulse 61 08/14/20 08:00 Resp 22 H 08/14/20 08:00 BP 132/83 08/14/20 08:00 Pulse Ox 96 08/14/20 08:00 Weight - Most Recent: 112 lb 6.4 oz I&O - Last 24 Hours: Intake & Output 08/13/20 08/14/20 08/14/20 22:59 06:59 14:59 Intake Total 100 100 Balance 100 100 Lab Results Last 24 Hours: Laboratory Results - last 24 hr 08/14/20 08/14/20 Range/Units 06:22 06:22 Iron 26 L (50-175) ug/dL TIBC 150 L (250-450) ug/dL % Saturation 17.3 L (20.0-50.0) % Vitamin B12 725 (193-986) pg/mL Folate 18.6 (8.6-58.9) ng/mL Abdoul Results Last 24 Hours: Microbiology 08/11/20 00:40 Urine Culture - Final Urine, Clean Catch Med Orders - Current: Current Medications Acetaminophen (Tylenol) 650 mg PO Q4H PRN PRN Reason: Pain (Mild 1-3)/fever Last Admin: 08/11/20 14:12 Dose: 650 mg Documented by: Acetaminophen (Tylenol) 650 mg PO TID [facility] Last Admin: 08/14/20 08:11 Dose: 650 mg Documented by: Hydrocodone Bitart/Acetaminophen ([place] 325-5 Mg) 1 tab PO Q4H PRN PRN Reason: Pain (moderate 4-6) Last Admin: 08/14/20 06:21 Dose: 1 tab Documented by: Furosemide (Lasix) 20 mg PO DAILY [facility] Last Admin: 08/14/20 08:12 Dose: 20 mg Documented by: Gabapentin (Neurontin) 200 mg PO TID [facility] Last Admin: 08/14/20 08:11 Dose: 200 mg Documented by: Influenza Virus Vaccine (Pharmacy To Dose - Influenza Vaccine) 1 each IM DAILY [facility] Last Admin: 08/14/20 09:35 Dose: Not Given Documented by: Lidocaine (Lidoderm 5%) 700 mg TRDERM DAILY [facility] Last Admin: 08/14/20 08:10 Dose: 700 mg Documented by: Lorazepam (Ativan) 1 mg PO BID [facility] Last Admin: 08/14/20 08:11 Dose: 1 mg Documented by: Miscellaneous Information (Remove Patch) 1 ea TRDERM BEDTIME [facility] Last Admin: 08/13/20 21:00 Dose: Not Given Documented by: Multivitamins/Minerals (Vitamins And Minerals) 1 tab PO WITHBREAKFAST [facility] Last Admin: 08/14/20 08:12 Dose: 1 tab Documented by: Ondansetron HCl (Zofran) 4 mg IVPUSH Q6H PRN PRN Reason: Nausea/Vomiting Oxycodone HCl (Oxycodone) 5 mg PO Q6H PRN PRN Reason: Pain (severe 7-10) Last Admin: 08/13/20 10:52 Dose: 5 mg Documented by: Pantoprazole Sodium (Protonix) 40 mg PO BIDAC [facility] Last Admin: 08/14/20 06:17 Dose: 40 mg Documented by: Polysaccharide Iron Complex (Ferrex 150) 150 mg PO DAILY [facility] Potassium Chloride (Klor-Con 10) 20 meq PO BEDTIME [facility] Last Admin: 08/13/20 20:17 Dose: 20 meq Documented by: Sodium Chloride (Saline Flush) 10 ml FLUSH ASDIRECTED PRN PRN Reason: Keep Vein Open Last Admin: 08/12/20 07:32 Dose: 10 ml Documented by: Trazodone HCl (Trazodone) 50 mg PO BEDTIME [facility] Last Admin: 08/13/20 20:18 Dose: 50 mg Documented by: Vancomycin HCl (Vancocin 125 Mg Capsule) 125 mg PO QID [facility] Last Admin: 08/14/20 08:12 Dose: 125 mg Documented by: Discontinued Medications Acetaminophen (Tylenol) 650 mg PO BID [facility] Barium Sulfate (Readi-Cat 2) 450 ml PO Q1H [facility] Stop: 08/11/20 08:01 Last Admin: 08/11/20 08:16 Dose: 450 ml Documented by: Heparin Sodium (Porcine) (Heparin Sodium) 5,000 units SUBCUT Q8HR [facility] Last Admin: 08/11/20 05:48 Dose: 5,000 units Documented by: Piperacillin Sod/Tazobactam (Sod 3.375 gm/ Sodium Chloride) 100 mls @ 200 mls/hr IV Q6H [facility] Piperacillin Sod/Tazobactam (Sod 3.375 gm/ Sodium Chloride) 100 mls @ 200 mls/hr IV Q8H [facility] Last Infusion: 08/13/20 08:20 Dose: Infused Documented by: Piperacillin Sod/Tazobactam (Sod 3.375 gm/ Sodium Chloride) 100 mls @ 200 mls/hr IV ONETIME ONE Stop: 08/10/20 16:29 Last Admin: 08/10/20 16:41 Dose: 200 mls/hr Documented by: Iopamidol (Isovue-300 (61%)) 100 ml IVPUSH ONETIME ONE Stop: 08/10/20 15:41 Last Admin: 08/10/20 22:45 Dose: Not Given Documented by: Iopamidol (Isovue-300 (61%)) 100 ml IVPUSH ONETIME ONE Stop: 08/11/20 09:01 Last Admin: 08/11/20 09:19 Dose: 100 ml Documented by: Lorazepam (Ativan) 1 mg PO Q6H PRN PRN Reason: anxiety, headache Last Admin: 08/11/20 14:12 Dose: 1 mg Documented by: Lorazepam (Ativan) 0.5 mg PO BID [place] Magnesium Oxide (Magnesium Oxide) 250 mg PO BIDMEALS [facility] Stop: 08/12/20 18:01 Last Admin: 08/12/20 17:09 Dose: 250 mg Documented by: Magnesium Oxide (Magnesium Oxide) 250 mg PO BID@0800,1800 [facility] Stop: 08/14/20 08:01 Last Admin: 08/14/20 08:11 Dose: 250 mg Documented by: Naproxen (Naprosyn) 250 mg PO Q12HR [facility] Last Admin: 08/12/20 09:11 Dose: 250 mg Documented by: Temazepam (Restoril) 15 mg PO BEDTIME PRN PRN Reason: Sleep Last Admin: 08/11/20 02:16 Dose: 15 mg Documented by: - Exam General: Alert, Oriented Neck: Supple Lungs: Decreased Breath Sounds (at bases). No: Rhonchi, Wheezing Cardiovascular: Regular Rhythm GI/Abdominal Exam: Normal Bowel Sounds, Soft, Non-Tender. No: Distended Extremities: Pedal Edema (trace bilateral edema, also edema of the buttocks) Skin: Warm, Other (decubitus ulcer on the sacral area) Wound/Incisions: Healing Well Psy/Mental Status: Alert Sepsis Event Note - Evaluation Sepsis Screening Result: No Definite Risk - Focused Exam Vital Signs: Vital Signs Temp Pulse Resp BP Pulse Ox 08/14/20 08:00 98.3 F 61 22 H 132/83 96 - Problem List & Annotations (1) Weakness acquired in intensive care unit SNOMED Code(s): 29828426 Code(s): R53.1 - WEAKNESS Status: Acute Current Visit: Yes (2) Leukocytosis SNOMED Code(s): 496808503, 298694853 Code(s): D72.829 - ELEVATED WHITE BLOOD CELL COUNT, UNSPECIFIED Status: Acute Current Visit: Yes (3) Anemia SNOMED Code(s): 390926143 Code(s): D64.9 - ANEMIA, UNSPECIFIED Status: Acute Current Visit: Yes (4) Seizure disorder SNOMED Code(s): 380194237 Code(s): G40.909 - EPILEPSY, UNSP, NOT INTRACTABLE, WITHOUT STATUS EPILEPTICUS Status: Acute Current Visit: Yes (5) Malnutrition of moderate degree SNOMED Code(s): 273312461 Code(s): E44.0 - MODERATE PROTEIN-CALORIE MALNUTRITION Status: Acute Current Visit: Yes (6) Pleural effusion SNOMED Code(s): 23068100 Code(s): J90 - PLEURAL EFFUSION, NOT ELSEWHERE CLASSIFIED Status: Acute Current Visit: Yes (7) C. difficile colitis SNOMED Code(s): 427214600 Code(s): A04.72 - ENTEROCOLITIS D/T CLOSTRIDIUM DIFFICILE, NOT SPCF RECUR Status: Acute Current Visit: Yes (8) Decubitus ulcer SNOMED Code(s): 196704095 Code(s): L89.90 - PRESSURE ULCER OF UNSPECIFIED SITE, UNSPECIFIED STAGE Status: Acute Current Visit: Yes - Problem List Review Problem List Initiated/Reviewed/Updated: Yes - My Orders Last 24 Hours: My Active Orders 08/15/20 09:00 Iron Polysaccharides Complex [Ferrex 150] 150 mg PO DAILY - Plan Plan:: Hospitalization was complicated with acute kidney injury, urinary tract infection, sepsis with shock liver. the patient was transferred to our facility for further physical and occupational therapy Prior to discharge the patient was noted to have leukocytosis, elevated pro calcitonin level. recent leukocytosis, elevated pro-calcitonin level might relate to pneumonia - as was questioned on ct - aspiration pneumonia is possible likely related to c. diff leukocytosis has been improving Stopped Zosyn - I think pneumonia resolved, the Cdiff is more relevant added Vanc PO to cover C diff diarrhea is improving Monitor for toxic megacolon Small amount of fresh blood in the stool was likely related to irritation No sign of further GI bleed Discontinued nonsteroidals Started Protonix b/l pleural effusion, leg edema likely related to malnutrition will encourage protein intake cont lasix with potassium supplement electrolytes have been stable Use Zackary stocking Malnutrition vitamin D deficiency Lower extremity edema was on TPN earlier Nutrition consults Nutritional supplements anemia hgb 7.5, 8.1 likely anemia of chronic dx. cont nutrition support, MVI low iron level and iron saturation - we'll supplement iron, normal b12, folate -continue multivitamin Decubitus ulcer will cont wound care per [employer] rec's, use medical honey on low pressure egg crate frequent repositioning Acute hypoxemic respiratory failure secondary to pneumonia Appears resolved history of seizure disorder Now off medication We'll monitor anxiety, headache will add ativan prn for anxiety tylenol, hydrocodone, oxycodone as needed for mild, moderate, severe pain CODE STATUS was discussed on admission The patient wants to be full code dvt prophylaxis due to very low sq fat will hold lovenox, heparin use scd and mobilization brother has arrived to visit, discussed with him at bedside called Kolby and gave update (POA)
[2020-08-14] MEDS ORDERED: LORazepam 1 MG Tab PO ONE (15:47)
[2020-08-14] MEDS: Potassium Chloride 10 MEQ Tab.ER PO SCH (22:00)
[2020-08-14] MEDS: traZODone 50 MG Tab PO SCH (22:01)
[2020-08-14] MEDS: oxyCODONE 5 MG Tab PO PRN (22:39)
[2020-08-15] MEDS: Acetaminophen/HYDROcodone 325-5 MG Tab PO PRN ×2 (03:25→13:42)
[2020-08-15] MEDS: Pantoprazole 40 MG Tab.CR PO SCH ×2 (06:21→17:04)
[2020-08-15] MEDS: Multivitamins, Therapeutic with Minerals Tab PO SCH (09:19)
[2020-08-15] MEDS: LORazepam 1 MG Tab PO SCH ×2 (09:20→20:21)
[2020-08-15] MEDS: Iron Polysaccharides Complex 150 MG Cap PO SCH (09:20)
[2020-08-15] MEDS: Lidocaine 5% 700 MG Patch TRDERM SCH (09:21)
[2020-08-15] MEDS: Gabapentin 100 MG Cap PO SCH ×3 (09:21→20:21)
[2020-08-15] MEDS: Furosemide 20 MG Tab PO SCH (09:21)
[2020-08-15] MEDS: Acetaminophen 325 MG Tab PO SCH ×3 (09:21→20:23)
[2020-08-15] MEDS: Vancomycin 125 MG Cap PO SCH ×4 (09:22→20:21)
[2020-08-15] MEDS: oxyCODONE 5 MG Tab PO PRN ×2 (09:35→20:21)
[2020-08-15] MEDS ORDERED: Dicyclomine 10 MG Cap PO PRN (16:50)
[2020-08-15] MEDS: Potassium Chloride 10 MEQ Tab.ER PO SCH (20:20)
[2020-08-15] MEDS: traZODone 50 MG Tab PO SCH (20:21)
[2020-08-15] MEDS: Sodium Chloride 0.9% 10 ML Syringe FLUSH PRN (21:02)
[2020-08-16] MEDS: Pantoprazole 40 MG Tab.CR PO SCH ×2 (07:03→16:37)
[2020-08-16] MEDS: Iron Polysaccharides Complex 150 MG Cap PO SCH (09:01)
[2020-08-16] MEDS: LORazepam 1 MG Tab PO SCH ×2 (09:01→21:42)
[2020-08-16] MEDS: Multivitamins, Therapeutic with Minerals Tab PO SCH (09:01)
[2020-08-16] MEDS: Vancomycin 125 MG Cap PO SCH ×4 (09:01→21:41)
[2020-08-16] MEDS: Furosemide 20 MG Tab PO SCH (09:01)
[2020-08-16] MEDS: Gabapentin 100 MG Cap PO SCH ×3 (09:01→22:34)
[2020-08-16] MEDS: Lidocaine 5% 700 MG Patch TRDERM SCH (09:02)
[2020-08-16] MEDS: Acetaminophen 325 MG Tab PO SCH ×3 (09:02→21:43)
[2020-08-16] MEDS: Sodium Chloride 0.9% 10 ML Syringe FLUSH PRN ×2 (09:05→21:44)
[2020-08-16 09:13] LABS: ANION GAP 12.3 mEq/L (7-13); CHLORIDE,CL 106 mmol/L (98-107); SODIUM,NA 141 mmol/L (136-145)
--- NOTE | 2020-08-16 13:53 | CT ---
EXAMINATION: Head wo Cont SEX: Female AGE: 65 years CLINICAL HISTORY: 65-year-old hospitalized patient injured in fall (struck back of head). No loss of consciousness and patient is not on anticoagulants. No comparison CT or MRI exams of the head available at this institution. Scan technique: Volume acquisition of data semi-emergency unenhanced CT scan of the head and brain obtained with the patient lying supine on the Siemens multislice scanner [place], [place]. All data archived in the PACS system for storage, reformatting axial/sagittal/coronal planes and study (bone/soft tissue/brain windows). Interpretation: 1. Uniformly thick bony calvarium without sign of skull fracture or underlying/contrecoup brain contusion. 2. *Focal area of decreased attenuation white matter, parietal lobe, left cerebral hemisphere without mass effect on the surrounding cerebral sulci. Ischemic infarct. No sign of acute intracerebral, intraventricular or subarachnoid bleed. 3. Mild, symmetric cerebral cortical and cerebellar atrophy. Physiologic pineal and choroid plexus calcifications. 4. No supratentorial or posterior fossa mass lesion. Cerebellum and brainstem unremarkable. No arachnoid cyst. 5. No abnormal extracerebral/intracranial epidural or subdural hematoma. 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 Atrophy. No sign of skull fracture, acute brain contusion or intracranial bleed.
[2020-08-16] MEDS ORDERED: Honey 44 ML Gel TP PRN (15:18)
[2020-08-16] MEDS: Potassium Chloride 10 MEQ Tab.ER PO SCH (21:41)
[2020-08-16] MEDS: traZODone 50 MG Tab PO SCH (21:41)
[2020-08-16] MEDS: Sertraline 50 MG Tab PO SCH (21:42)
[2020-08-16] MEDS: MICONAZOLE NITRATE 2% TOP SCH (21:48)
[2020-08-16] MEDS: Honey 44 ML Gel TP SCH (22:32)
[2020-08-17] MEDS: oxyCODONE 5 MG Tab PO PRN ×2 (06:11→16:04)
[2020-08-17] MEDS: Pantoprazole 40 MG Tab.CR PO SCH ×2 (06:13→16:04)
[2020-08-17] MEDS: Lidocaine 5% 700 MG Patch TRDERM SCH (09:28)
[2020-08-17] MEDS: LORazepam 1 MG Tab PO SCH ×2 (09:30→21:15)
[2020-08-17] MEDS: Furosemide 20 MG Tab PO SCH (09:31)
[2020-08-17] MEDS: Multivitamins, Therapeutic with Minerals Tab PO SCH (09:31)
[2020-08-17] MEDS: Gabapentin 100 MG Cap PO SCH ×3 (09:31→21:15)
[2020-08-17] MEDS: Acetaminophen 325 MG Tab PO SCH ×3 (09:32→21:15)
[2020-08-17] MEDS: Vancomycin 125 MG Cap PO SCH ×4 (09:33→21:15)
[2020-08-17] MEDS: Iron Polysaccharides Complex 150 MG Cap PO SCH (09:33)
[2020-08-17] MEDS: MICONAZOLE NITRATE 2% TOP SCH ×2 (09:34→21:16)
[2020-08-17] MEDS: Honey 44 ML Gel TP SCH ×2 (09:36→21:13)
[2020-08-17] MEDS: Acetaminophen/HYDROcodone 325-5 MG Tab PO PRN (18:13)
[2020-08-17] MEDS: Sertraline 50 MG Tab PO SCH (21:14)
[2020-08-17] MEDS: traZODone 50 MG Tab PO SCH (21:14)
[2020-08-17] MEDS: Potassium Chloride 10 MEQ Tab.ER PO SCH (21:17)
[2020-08-17] MEDS: Sodium Chloride 0.9% 10 ML Syringe FLUSH PRN (21:19)
[2020-08-18] MEDS: Pantoprazole 40 MG Tab.CR PO SCH ×2 (05:52→16:23)
[2020-08-18] MEDS: oxyCODONE 5 MG Tab PO PRN ×2 (05:54→11:58)
[2020-08-18] MEDS: Multivitamins, Therapeutic with Minerals Tab PO SCH (09:16)
[2020-08-18] MEDS: Vancomycin 125 MG Cap PO SCH ×4 (09:16→22:04)
[2020-08-18] MEDS: Iron Polysaccharides Complex 150 MG Cap PO SCH (09:16)
[2020-08-18] MEDS: Gabapentin 100 MG Cap PO SCH ×3 (09:16→22:01)
[2020-08-18] MEDS: LORazepam 1 MG Tab PO SCH ×2 (09:17→22:01)
[2020-08-18] MEDS: Furosemide 20 MG Tab PO SCH (09:17)
[2020-08-18] MEDS: Acetaminophen 325 MG Tab PO SCH ×3 (09:17→22:02)
[2020-08-18] MEDS: MICONAZOLE NITRATE 2% TOP SCH ×2 (09:20→21:59)
[2020-08-18] MEDS: Honey 44 ML Gel TP SCH ×2 (09:20→22:00)
[2020-08-18] MEDS: Lidocaine 5% 700 MG Patch TRDERM SCH (09:21)
[2020-08-18] MEDS ORDERED: Honey 44 ML Gel TP PRN (15:30)
[2020-08-18] MEDS: Sertraline 50 MG Tab PO SCH (22:01)
[2020-08-18] MEDS: traZODone 50 MG Tab PO SCH (22:01)
[2020-08-18] MEDS: Potassium Chloride 10 MEQ Tab.ER PO SCH (22:01)
[2020-08-18] MEDS: Sodium Chloride 0.9% 10 ML Syringe FLUSH PRN (22:04)
[2020-08-19] MEDS: oxyCODONE 5 MG Tab PO PRN ×4 (02:17→22:04)
[2020-08-19] MEDS: Pantoprazole 40 MG Tab.CR PO SCH ×2 (06:26→16:51)
[2020-08-19] MEDS: Iron Polysaccharides Complex 150 MG Cap PO SCH (09:01)
[2020-08-19] MEDS: Furosemide 20 MG Tab PO SCH (09:02)
[2020-08-19] MEDS: LORazepam 1 MG Tab PO SCH ×2 (09:02→22:05)
[2020-08-19] MEDS: Vancomycin 125 MG Cap PO SCH ×4 (09:02→22:02)
[2020-08-19] MEDS: Multivitamins, Therapeutic with Minerals Tab PO SCH (09:03)
[2020-08-19] MEDS: Acetaminophen 325 MG Tab PO SCH ×3 (09:03→22:05)
[2020-08-19] MEDS: Gabapentin 100 MG Cap PO SCH ×3 (09:04→22:06)
[2020-08-19] MEDS: Lidocaine 5% 700 MG Patch TRDERM SCH (09:05)
[2020-08-19] MEDS: Honey 44 ML Gel TP SCH ×2 (09:17→22:12)
[2020-08-19] MEDS: MICONAZOLE NITRATE 2% TOP SCH ×2 (09:18→22:09)
[2020-08-19] MEDS: Sodium Chloride 0.9% 10 ML Syringe FLUSH PRN ×2 (09:22→22:32)
[2020-08-19] MEDS: Potassium Chloride 10 MEQ Tab.ER PO SCH (22:02)
[2020-08-19] MEDS: traZODone 50 MG Tab PO SCH (22:03)
[2020-08-19] MEDS: Sertraline 50 MG Tab PO SCH (22:03)
[2020-08-20] MEDS: Pantoprazole 40 MG Tab.CR PO SCH ×2 (06:21→17:19)
[2020-08-20] MEDS: Multivitamins, Therapeutic with Minerals Tab PO SCH (09:03)
[2020-08-20] MEDS: Lidocaine 5% 700 MG Patch TRDERM SCH (09:03)
[2020-08-20] MEDS: Gabapentin 100 MG Cap PO SCH ×3 (09:03→21:43)
[2020-08-20] MEDS: Iron Polysaccharides Complex 150 MG Cap PO SCH (09:03)
[2020-08-20] MEDS: Acetaminophen 325 MG Tab PO SCH ×3 (09:03→21:44)
[2020-08-20] MEDS: Vancomycin 125 MG Cap PO SCH ×4 (09:04→21:43)
[2020-08-20] MEDS: LORazepam 1 MG Tab PO SCH ×2 (09:04→21:43)
[2020-08-20] MEDS: Furosemide 20 MG Tab PO SCH (09:04)
[2020-08-20] MEDS: MICONAZOLE NITRATE 2% TOP SCH ×2 (09:05→21:45)
[2020-08-20] MEDS: Honey 44 ML Gel TP SCH ×2 (09:05→21:45)
[2020-08-20] MEDS: Acetaminophen/HYDROcodone 325-5 MG Tab PO PRN (13:55)
[2020-08-20] MEDS: oxyCODONE 5 MG Tab PO PRN (19:14)
[2020-08-20] MEDS: traZODone 50 MG Tab PO SCH (21:42)
[2020-08-20] MEDS: Sertraline 50 MG Tab PO SCH (21:42)
[2020-08-20] MEDS: Potassium Chloride 10 MEQ Tab.ER PO SCH (21:43)
[2020-08-20] MEDS: Sodium Chloride 0.9% 10 ML Syringe FLUSH PRN (21:46)
[2020-08-21] MEDS: Pantoprazole 40 MG Tab.CR PO SCH ×2 (06:16→16:54)
[2020-08-21] MEDS: oxyCODONE 5 MG Tab PO PRN ×2 (06:16→12:31)
[2020-08-21] MEDS: Acetaminophen 325 MG Tab PO SCH ×3 (09:39→21:43)
[2020-08-21] MEDS: Furosemide 20 MG Tab PO SCH (09:39)
[2020-08-21] MEDS: Multivitamins, Therapeutic with Minerals Tab PO SCH (09:40)
[2020-08-21] MEDS: Iron Polysaccharides Complex 150 MG Cap PO SCH (09:40)
[2020-08-21] MEDS: LORazepam 1 MG Tab PO SCH ×2 (09:40→21:44)
[2020-08-21] MEDS: Lidocaine 5% 700 MG Patch TRDERM SCH (09:41)
[2020-08-21] MEDS: Gabapentin 100 MG Cap PO SCH ×3 (09:42→21:44)
[2020-08-21] MEDS: Acetaminophen/HYDROcodone 325-5 MG Tab PO PRN (09:43)
[2020-08-21] MEDS: Honey 44 ML Gel TP SCH ×2 (09:50→21:47)
--- NOTE | 2020-08-21 10:56 | PCM.PN ---
- General Info Date of Service: 08/21/20 Admission Dx/Problem (Free Text): 65-year-old lady with a history of congenital hip dysplasia, seizures, malnutrition. Patient was admitted to acute care with acute hypoxemic respi ratory failure secondary to pneumonia. Hospitalization was complicated with acute kidney injury, urinary tract infection, sepsis with shock liver. She was found to have C. difficile on admit. Completed IV vancomycin. Diarrhea improved. Patient was seen and evaluated today. Chart reviewed Patient doing okay. Offers no new complaint. Functional Status: Reports: Pain Controlled - Review of Systems General: Reports: No Symptoms HEENT: Reports: No Symptoms Pulmonary: Reports: No Symptoms Cardiovascular: Reports: No Symptoms Gastrointestinal: Reports: No Symptoms Genitourinary: Reports: No Symptoms Musculoskeletal: Reports: No Symptoms Skin: Reports: No Symptoms Neurological: Reports: No Symptoms Psychiatric: Reports: No Symptoms - Patient Data Vitals - Most Recent: Last Vital Signs Temp 98.8 F 08/20/20 20:00 Pulse 82 08/20/20 20:00 Resp 20 08/20/20 20:00 BP 116/58 L 08/20/20 20:00 Pulse Ox 97 08/20/20 20:00 Weight - Most Recent: 95 lb 3.2 oz I&O - Last 24 Hours: Intake & Output 08/20/20 08/21/20 08/21/20 22:59 06:59 14:59 Intake Total 400 150 Balance 400 150 Med Orders - Current: Current Medications Acetaminophen (Tylenol) 650 mg PO Q4H PRN PRN Reason: Pain (Mild 1-3)/fever Last Admin: 08/11/20 14:12 Dose: 650 mg Documented by: Acetaminophen (Tylenol) 650 mg PO TID [facility] Last Admin: 08/21/20 09:39 Dose: 650 mg Documented by: Hydrocodone Bitart/Acetaminophen ([place] 325-5 Mg) 1 tab PO Q4H PRN PRN Reason: Pain (moderate 4-6) Last Admin: 08/21/20 09:43 Dose: 1 tab Documented by: Dicyclomine HCl (Bentyl) 10 mg PO Q6H PRN PRN Reason: crampy abd pain Furosemide (Lasix) 20 mg PO DAILY [facility] Last Admin: 08/21/20 09:39 Dose: 20 mg Documented by: Gabapentin (Neurontin) 200 mg PO TID [facility] Last Admin: 08/21/20 09:42 Dose: 200 mg Documented by: Influenza Virus Vaccine (Pharmacy To Dose - Influenza Vaccine) 1 each IM DAILY [facility] Last Admin: 08/21/20 09:43 Dose: Not Given Documented by: Lidocaine (Lidoderm 5%) 700 mg TRDERM DAILY [facility] Last Admin: 08/21/20 09:41 Dose: 700 mg Documented by: Lorazepam (Ativan) 1 mg PO BID [facility] Last Admin: 08/21/20 09:40 Dose: 1 mg Documented by: Miscellaneous Information (Remove Patch) 1 ea TRDERM BEDTIME [facility] Last Admin: 08/20/20 21:47 Dose: 1 ea Documented by: Miscellaneous Medication (Medihoney) 0 ml TP BID [facility] Last Admin: 08/20/20 21:45 Dose: 1 ml Documented by: Miscellaneous Medication (Medihoney) 0 ml TP ASDIRECTED PRN PRN Reason: IF SOILED Multivitamins/Minerals (Vitamins And Minerals) 1 tab PO WITHBREAKFAST [facility] Last Admin: 08/21/20 09:40 Dose: 1 tab Documented by: Miconazole Nitrate (Cream 2%) 0 each TOP BID [facility] Last Admin: 08/20/20 21:45 Dose: 1 each Documented by: Ondansetron HCl (Zofran) 4 mg IVPUSH Q6H PRN PRN Reason: Nausea/Vomiting Oxycodone HCl (Oxycodone) 5 mg PO Q6H PRN PRN Reason: Pain (severe 7-10) Last Admin: 08/21/20 06:16 Dose: 5 mg Documented by: Pantoprazole Sodium (Protonix) 40 mg PO BIDAC [facility] Last Admin: 08/21/20 06:16 Dose: 40 mg Documented by: Polysaccharide Iron Complex (Ferrex 150) 150 mg PO DAILY [facility] Last Admin: 08/21/20 09:40 Dose: 150 mg Documented by: Potassium Chloride (Klor-Con 10) 20 meq PO BEDTIME [facility] Last Admin: 08/20/20 21:43 Dose: 20 meq Documented by: Sertraline HCl (Zoloft) 25 mg PO BEDTIME [facility] Last Admin: 08/20/20 21:42 Dose: 25 mg Documented by: Sodium Chloride (Saline Flush) 10 ml FLUSH ASDIRECTED PRN PRN Reason: Keep Vein Open Last Admin: 08/20/20 21:46 Dose: 10 ml Documented by: Trazodone HCl (Trazodone) 50 mg PO BEDTIME [facility] Last Admin: 08/20/20 21:42 Dose: 50 mg Documented by: Discontinued Medications Acetaminophen (Tylenol) 650 mg PO BID [facility] Barium Sulfate (Readi-Cat 2) 450 ml PO Q1H [facility] Stop: 08/11/20 08:01 Last Admin: 08/11/20 08:16 Dose: 450 ml Documented by: Heparin Sodium (Porcine) (Heparin Sodium) 5,000 units SUBCUT Q8HR [facility] Last Admin: 08/11/20 05:48 Dose: 5,000 units Documented by: Piperacillin Sod/Tazobactam (Sod 3.375 gm/ Sodium Chloride) 100 mls @ 200 mls/hr IV Q6H [facility] Piperacillin Sod/Tazobactam (Sod 3.375 gm/ Sodium Chloride) 100 mls @ 200 mls/hr IV Q8H [facility] Last Infusion: 08/13/20 08:20 Dose: Infused Documented by: Piperacillin Sod/Tazobactam (Sod 3.375 gm/ Sodium Chloride) 100 mls @ 200 mls/hr IV ONETIME ONE Stop: 08/10/20 16:29 Last Admin: 08/10/20 16:41 Dose: 200 mls/hr Documented by: Iopamidol (Isovue-300 (61%)) 100 ml IVPUSH ONETIME ONE Stop: 08/10/20 15:41 Last Admin: 08/10/20 22:45 Dose: Not Given Documented by: Iopamidol (Isovue-300 (61%)) 100 ml IVPUSH ONETIME ONE Stop: 08/11/20 09:01 Last Admin: 08/11/20 09:19 Dose: 100 ml Documented by: Lorazepam (Ativan) 1 mg PO Q6H PRN PRN Reason: anxiety, headache Last Admin: 08/11/20 14:12 Dose: 1 mg Documented by: Lorazepam (Ativan) 0.5 mg PO BID [facility] Lorazepam (Ativan) 1 mg PO ONETIME ONE Stop: 08/14/20 15:48 Last Admin: 08/14/20 16:04 Dose: 1 mg Documented by: Magnesium Oxide (Magnesium Oxide) 250 mg PO BIDMEALS [facility] Stop: 08/12/20 18:01 Last Admin: 08/12/20 17:09 Dose: 250 mg Documented by: Magnesium Oxide (Magnesium Oxide) 250 mg PO BID@0800,1800 [facility] Stop: 08/14/20 08:01 Last Admin: 08/14/20 08:11 Dose: 250 mg Documented by: Miscellaneous Medication (Medihoney) 0 ml TP BID [facility] Last Admin: 08/18/20 09:20 Dose: 1 ml Documented by: Miscellaneous Medication (Medihoney) 0 ml TP ASDIRECTED PRN PRN Reason: IF SOILED Naproxen (Naprosyn) 250 mg PO Q12HR [facility] Last Admin: 08/12/20 09:11 Dose: 250 mg Documented by: Temazepam (Restoril) 15 mg PO BEDTIME PRN PRN Reason: Sleep Last Admin: 08/11/20 02:16 Dose: 15 mg Documented by: Vancomycin HCl (Vancocin 125 Mg Capsule) 125 mg PO QID [facility] Stop: 08/20/20 23:59 Last Admin: 08/20/20 21:43 Dose: 125 mg Documented by: - Exam Quality Assessment: DVT Prophylaxis General: Alert, Oriented HEENT: Pupils Equal, Pupils Reactive, EOMI, Mucous Membr. Moist/[place] Neck: Supple Lungs: Clear to Auscultation, Normal Respiratory Effort Cardiovascular: Regular Rate, Regular Rhythm GI/Abdominal Exam: Normal Bowel Sounds, Soft, Non-Tender, No Organomegaly, No Distention, No Abnormal Bruit, No Mass, Pelvis Stable (Female) Exam: Normal External Exam, Normal Speculum Exam, Normal Bimanual Ex am Back Exam: Normal Inspection, Full Range of Motion Extremities: Normal Inspection, Normal Range of Motion, Non-Tender, No Pedal Edema, Normal Capillary Refill Skin: Warm, Dry, Intact Wound/Incisions: Healing Well Neurological: No New Focal Deficit Psy/Mental Status: Alert, Normal Affect, Normal Mood - Patient Data Result Diagrams: 08/16/20 08:43 08/16/20 08:43 Sepsis Event Note - Evaluation Sepsis Screening Result: No Definite Risk - Problem List Review Problem List Initiated/Reviewed/Updated: Yes - Plan Plan:: #C. difficile colitis Completed 10-day course of oral vancomycin Diarrhea resolved #B/l pleural effusion, leg edema Likely related to malnutrition Encourage protein intake Continue lasix with potassium supplement Use Zackary stocking Malnutrition vitamin D deficiency Lower extremity edema was on TPN earlier Nutrition consults Nutritional supplements Anemia Hemoglobin stable likely anemia of chronic dx. cont nutrition support, MVI low iron level and iron saturation - we'll supplement iron, normal b12, folate -continue multivitamin Decubitus ulcer will cont wound care per [employer] rec's, use medical honey on low pressure egg crate frequent repositioning Acute hypoxemic respiratory failure secondary to pneumonia Appears resolved history of seizure disorder Now off medication We'll monitor anxiety, headache will add ativan prn for anxiety tylenol, hydrocodone, oxycodone as needed for mild, moderate, severe pain CODE STATUS was discussed on admission The patient wants to be full code dvt prophylaxis due to is ready to be low sq fat will hold lovenox, heparin use scd and mobilization Or
[2020-08-21] MEDS: MICONAZOLE NITRATE 2% TOP SCH ×2 (12:27→21:48)
[2020-08-21] MEDS ORDERED: fentaNYL 12 MCG/HR Transdermal Patch TRDERM SCH (18:00)
[2020-08-21] MEDS: Potassium Chloride 10 MEQ Tab.ER PO SCH (21:42)
[2020-08-21] MEDS: traZODone 50 MG Tab PO SCH (21:42)
[2020-08-21] MEDS: Sertraline 50 MG Tab PO SCH (21:43)
[2020-08-22] MEDS: Acetaminophen/HYDROcodone 325-5 MG Tab PO PRN (05:51)
[2020-08-22] MEDS: Pantoprazole 40 MG Tab.CR PO SCH ×2 (05:52→15:51)
[2020-08-22] MEDS: Acetaminophen 325 MG Tab PO SCH ×3 (08:52→21:24)
[2020-08-22] MEDS: Iron Polysaccharides Complex 150 MG Cap PO SCH (08:52)
[2020-08-22] MEDS: Gabapentin 100 MG Cap PO SCH ×3 (08:52→21:23)
[2020-08-22] MEDS: LORazepam 1 MG Tab PO SCH ×2 (08:53→21:22)
[2020-08-22] MEDS: Furosemide 20 MG Tab PO SCH (08:53)
[2020-08-22] MEDS: Multivitamins, Therapeutic with Minerals Tab PO SCH (08:53)
[2020-08-22] MEDS: Lidocaine 5% 700 MG Patch TRDERM SCH (08:53)
[2020-08-22] MEDS: MICONAZOLE NITRATE 2% TOP SCH ×2 (10:46→21:27)
[2020-08-22] MEDS: Honey 44 ML Gel TP SCH ×2 (10:47→21:27)
[2020-08-22] MEDS ORDERED: Sertraline 50 MG Tab PO ONE (16:00)
[2020-08-22] MEDS: Potassium Chloride 10 MEQ Tab.ER PO SCH (21:22)
[2020-08-22] MEDS: traZODone 50 MG Tab PO SCH (21:23)
[2020-08-22] MEDS: oxyCODONE 5 MG Tab PO PRN (21:25)
[2020-08-23] MEDS: oxyCODONE 5 MG Tab PO PRN ×3 (05:07→19:38)
[2020-08-23] MEDS: Pantoprazole 40 MG Tab.CR PO SCH ×2 (05:08→16:05)
[2020-08-23] MEDS: Gabapentin 100 MG Cap PO SCH ×3 (09:01→21:08)
[2020-08-23] MEDS: Iron Polysaccharides Complex 150 MG Cap PO SCH (09:02)
[2020-08-23] MEDS: Sertraline 50 MG Tab PO SCH (09:02)
[2020-08-23] MEDS: Furosemide 20 MG Tab PO SCH (09:02)
[2020-08-23] MEDS: Multivitamins, Therapeutic with Minerals Tab PO SCH (09:02)
[2020-08-23] MEDS: Acetaminophen 325 MG Tab PO SCH ×3 (09:03→21:09)
[2020-08-23] MEDS: LORazepam 1 MG Tab PO SCH ×2 (09:03→21:08)
[2020-08-23] MEDS: Lidocaine 5% 700 MG Patch TRDERM SCH (09:04)
[2020-08-23] MEDS: MICONAZOLE NITRATE 2% TOP SCH ×2 (09:06→21:41)
[2020-08-23] MEDS: Honey 44 ML Gel TP SCH (09:06)
[2020-08-23] MEDS: [UNRECOGNIZED DRUG - OTHER] TOP SCH ×2 (17:30→21:16)
[2020-08-23] MEDS: traZODone 50 MG Tab PO SCH (21:08)
[2020-08-23] MEDS: Potassium Chloride 10 MEQ Tab.ER PO SCH (21:09)
[2020-08-23] MEDS: Sodium Chloride 0.9% 10 ML Syringe FLUSH PRN (21:59)
[2020-08-24] MEDS: Pantoprazole 40 MG Tab.CR PO SCH ×2 (05:46→16:46)
[2020-08-24] MEDS: oxyCODONE 5 MG Tab PO PRN ×3 (06:25→20:49)
[2020-08-24] MEDS: LORazepam 1 MG Tab PO SCH ×2 (10:25→20:50)
[2020-08-24] MEDS: Furosemide 20 MG Tab PO SCH (10:26)
[2020-08-24] MEDS: Gabapentin 100 MG Cap PO SCH ×3 (10:26→20:48)
[2020-08-24] MEDS: Acetaminophen 325 MG Tab PO SCH ×3 (10:27→20:50)
[2020-08-24] MEDS: Sertraline 50 MG Tab PO SCH (10:29)
[2020-08-24] MEDS: Lidocaine 5% 700 MG Patch TRDERM SCH (10:30)
[2020-08-24] MEDS: Multivitamins, Therapeutic with Minerals Tab PO SCH (10:30)
[2020-08-24] MEDS: Iron Polysaccharides Complex 150 MG Cap PO SCH (10:30)
[2020-08-24] MEDS: [UNRECOGNIZED DRUG - OTHER] TOP SCH ×2 (12:30→20:51)
[2020-08-24 13:58] LABS: ANION GAP 10.2 mEq/L (7-13); CHLORIDE,CL 102 mmol/L (98-107); SODIUM,NA 139 mmol/L (136-145)
[2020-08-24] MEDS: MICONAZOLE NITRATE 2% TOP SCH ×2 (14:05→20:52)
[2020-08-24] MEDS: Acetaminophen 500 MG Tab PO PRN (17:09)
[2020-08-24] MEDS: Potassium Chloride 10 MEQ Tab.ER PO SCH (20:50)
[2020-08-24] MEDS: traZODone 50 MG Tab PO SCH (20:51)
[2020-08-24] MEDS: Sodium Chloride 0.9% 10 ML Syringe FLUSH PRN (20:53)
[2020-08-25] MEDS: oxyCODONE 5 MG Tab PO PRN ×3 (03:10→22:02)
[2020-08-25] MEDS: Pantoprazole 40 MG Tab.CR PO SCH ×2 (05:13→15:40)
[2020-08-25] MEDS: Gabapentin 100 MG Cap PO SCH ×3 (08:24→20:36)
[2020-08-25] MEDS: Multivitamins, Therapeutic with Minerals Tab PO SCH (08:24)
[2020-08-25] MEDS: Iron Polysaccharides Complex 150 MG Cap PO SCH (08:24)
[2020-08-25] MEDS: Furosemide 20 MG Tab PO SCH (08:24)
[2020-08-25] MEDS: Acetaminophen 325 MG Tab PO SCH ×3 (08:24→20:37)
[2020-08-25] MEDS: Sertraline 50 MG Tab PO SCH (08:24)
[2020-08-25] MEDS: Lidocaine 5% 700 MG Patch TRDERM SCH (08:25)
[2020-08-25] MEDS: LORazepam 1 MG Tab PO SCH ×2 (08:35→20:37)
[2020-08-25] MEDS: [UNRECOGNIZED DRUG - OTHER] TOP SCH ×2 (11:05→22:05)
[2020-08-25] MEDS: MICONAZOLE NITRATE 2% TOP SCH (11:07)
[2020-08-25] MEDS ORDERED: Ondansetron 4 MG Tab.DIS PO PRN (20:01)
[2020-08-25] MEDS: Potassium Chloride 10 MEQ Tab.ER PO SCH (20:36)
[2020-08-25] MEDS: traZODone 50 MG Tab PO SCH (20:36)
[2020-08-26] MEDS: Pantoprazole 40 MG Tab.CR PO SCH ×2 (06:24→17:14)
[2020-08-26] MEDS: Lidocaine 5% 700 MG Patch TRDERM SCH (09:35)
[2020-08-26] MEDS: Acetaminophen 325 MG Tab PO SCH ×3 (09:37→20:48)
[2020-08-26] MEDS: Sertraline 50 MG Tab PO SCH (09:40)
[2020-08-26] MEDS: Multivitamins, Therapeutic with Minerals Tab PO SCH (09:41)
[2020-08-26] MEDS: Iron Polysaccharides Complex 150 MG Cap PO SCH (09:41)
[2020-08-26] MEDS: Furosemide 20 MG Tab PO SCH (09:41)
[2020-08-26] MEDS: LORazepam 1 MG Tab PO SCH ×2 (09:42→20:47)
[2020-08-26] MEDS: oxyCODONE 5 MG Tab PO PRN ×2 (09:43→17:14)
[2020-08-26] MEDS: Gabapentin 100 MG Cap PO SCH ×3 (09:44→20:47)
[2020-08-26] MEDS: [UNRECOGNIZED DRUG - OTHER] TOP SCH ×2 (11:16→20:49)
[2020-08-26] MEDS: Acetaminophen 500 MG Tab PO PRN (11:39)
[2020-08-26] MEDS: traZODone 50 MG Tab PO SCH (20:47)
[2020-08-26] MEDS: Potassium Chloride 10 MEQ Tab.ER PO SCH (20:47)
[2020-08-27] MEDS: Pantoprazole 40 MG Tab.CR PO SCH ×2 (06:20→16:30)
[2020-08-27] MEDS: Lidocaine 5% 700 MG Patch TRDERM SCH (09:25)
[2020-08-27] MEDS: oxyCODONE 5 MG Tab PO PRN ×3 (09:27→22:37)
[2020-08-27] MEDS: Acetaminophen 325 MG Tab PO SCH ×3 (09:32→21:27)
[2020-08-27] MEDS: Multivitamins, Therapeutic with Minerals Tab PO SCH (09:33)
[2020-08-27] MEDS: LORazepam 1 MG Tab PO SCH ×2 (09:33→21:28)
[2020-08-27] MEDS: Iron Polysaccharides Complex 150 MG Cap PO SCH (09:33)
[2020-08-27] MEDS: Furosemide 20 MG Tab PO SCH (09:33)
[2020-08-27] MEDS: Sertraline 50 MG Tab PO SCH (09:34)
[2020-08-27] MEDS: Gabapentin 100 MG Cap PO SCH ×3 (09:34→21:27)
[2020-08-27] MEDS: [UNRECOGNIZED DRUG - OTHER] TOP SCH ×2 (10:00→21:31)
[2020-08-27] MEDS: traZODone 50 MG Tab PO SCH (21:29)
[2020-08-27] MEDS: Potassium Chloride 10 MEQ Tab.ER PO SCH (21:29)
[2020-08-28] MEDS: oxyCODONE 5 MG Tab PO PRN ×3 (05:14→18:28)
[2020-08-28] MEDS: Pantoprazole 40 MG Tab.CR PO SCH ×2 (05:14→16:10)
[2020-08-28 06:27] LABS: ANION GAP 10.7 mEq/L (7-13); CHLORIDE,CL 103 mmol/L (98-107); SODIUM,NA 140 mmol/L (136-145)
[2020-08-28] MEDS: Lidocaine 5% 700 MG Patch TRDERM SCH (09:01)
[2020-08-28] MEDS: Sertraline 50 MG Tab PO SCH (09:02)
[2020-08-28] MEDS: Multivitamins, Therapeutic with Minerals Tab PO SCH (09:02)
[2020-08-28] MEDS: Acetaminophen 325 MG Tab PO SCH ×3 (09:02→21:05)
[2020-08-28] MEDS: LORazepam 1 MG Tab PO SCH ×2 (09:02→21:02)
[2020-08-28] MEDS: Iron Polysaccharides Complex 150 MG Cap PO SCH (09:04)
[2020-08-28] MEDS: Gabapentin 100 MG Cap PO SCH ×3 (09:04→21:03)
[2020-08-28] MEDS: Furosemide 20 MG Tab PO SCH (09:04)
[2020-08-28] MEDS: [UNRECOGNIZED DRUG - OTHER] TOP SCH ×2 (12:00→21:04)
[2020-08-28] MEDS: Potassium Chloride 10 MEQ Tab.ER PO SCH (21:03)
[2020-08-28] MEDS: traZODone 50 MG Tab PO SCH (21:05)
[2020-08-29] MEDS: Sertraline 50 MG Tab PO SCH ×2 (06:47→08:07)
[2020-08-29] MEDS: Gabapentin 100 MG Cap PO SCH ×4 (06:47→20:42)
[2020-08-29] MEDS: Pantoprazole 40 MG Tab.CR PO SCH ×2 (06:48→15:50)
[2020-08-29] MEDS: Acetaminophen 500 MG Tab PO PRN (06:48)
[2020-08-29] MEDS: oxyCODONE 5 MG Tab PO PRN ×3 (06:50→22:03)
[2020-08-29] MEDS: Lidocaine 5% 700 MG Patch TRDERM SCH ×2 (06:50→08:04)
[2020-08-29] MEDS: Acetaminophen 325 MG Tab PO SCH ×3 (08:06→20:44)
[2020-08-29] MEDS: LORazepam 1 MG Tab PO SCH ×2 (14:23→20:43)
--- NOTE | 2020-08-29 14:42 | PN ---
DATE: 08/28/2020 SUBJECTIVE: The patient is complaining of mild to moderate pain at the site of her stage 4 decubitus ulcer on her coccyx, especially when it is manipulated. Her mood has improved. She seems to be more motivated. She appears to be gaining weight. REVIEW OF SYSTEMS: Negative for 14-systems except as specifically noted above. PHYSICAL EXAMINATION: General: Alert and oriented x3. HEENT: Moist mucous membranes. Normal sclerae. The patient appears cachectic. Lungs: Clear to auscultation bilaterally. Cardiovascular: No murmurs. Regular rate and rhythm. Abdomen: Soft and nontender, nondistended. Positive bowel sounds. Coccyx: There is a quarter-sized stage 4 decubitus ulceration with a base consistent of greenish-yellow slough. There is no drainage. The surrounding skin has very mild erythema, and it is tender to touch the entire circumference of the wound. Remainder of the skin is dry and intact. Neurologic: Grossly nonfocal. The patient has normal affect and euthymic. ASSESSMENT AND PLAN: 1. Clostridium difficile colitis. The patient has completed the course of oral vancomycin, and she no longer has any diarrhea. 2. Bilateral pleural effusions. This in the past was thought to be related to malnutrition and was managed with oral Lasix. We will reevaluate it by repeating a chest x-ray, perhaps Lasix can be stopped. 3. Severe calorie and protein malnutrition. Vitamin deficiency. The patient had been on TPN earlier in her stay. Nutrition is following. The patient is gaining weight. 4. Anemia. Now stable. No gross bleeding. Continue with vitamin and iron supplementation. 5. Stage 4 decubitus ulcer on the coccyx. Wound care was done today. Currently managed with Dakin solution. The patient is due for wound care surgical evaluation at the referral hospital. She may need sharp debridement or perhaps collagenase. We will follow up after her appointment. 6. Acute hypoxic respiratory failure secondary to pneumonia, resolved. 7. History of seizure, currently off medication. 8. Anxiety and depression, have been managed with benzodiazepines and also recently started on Zoloft. 9. Deep venous thrombosis prophylaxis. The patient has been using sequential compression devices as her weight was deemed too low for Lovenox and heparin. 10.The patient is full code. MOD /[id number]
[2020-08-29] MEDS: Furosemide 20 MG Tab PO SCH (15:48)
[2020-08-29] MEDS: Iron Polysaccharides Complex 150 MG Cap PO SCH (15:49)
[2020-08-29] MEDS: Multivitamins, Therapeutic with Minerals Tab PO SCH (15:49)
[2020-08-29] MEDS: [UNRECOGNIZED DRUG - OTHER] TOP SCH ×2 (15:51→20:48)
[2020-08-29] MEDS: Potassium Chloride 10 MEQ Tab.ER PO SCH (20:43)
[2020-08-29] MEDS: traZODone 50 MG Tab PO SCH (20:43)
[2020-08-29] MEDS: Melatonin 3 MG Tab PO SCH (20:46)
[2020-08-30] MEDS: Ibuprofen 400 MG Tab PO PRN (02:42)
[2020-08-30] MEDS: oxyCODONE 5 MG Tab PO PRN ×3 (03:58→20:25)
[2020-08-30] MEDS: Pantoprazole 40 MG Tab.CR PO SCH ×2 (05:40→17:24)
[2020-08-30] MEDS: Furosemide 20 MG Tab PO SCH (09:36)
[2020-08-30] MEDS: Iron Polysaccharides Complex 150 MG Cap PO SCH (09:36)
[2020-08-30] MEDS: Sertraline 50 MG Tab PO SCH (09:36)
[2020-08-30] MEDS: Gabapentin 100 MG Cap PO SCH ×3 (09:37→22:28)
[2020-08-30] MEDS: Acetaminophen 325 MG Tab PO SCH ×3 (09:37→22:29)
[2020-08-30] MEDS: Multivitamins, Therapeutic with Minerals Tab PO SCH (09:38)
[2020-08-30] MEDS: LORazepam 1 MG Tab PO SCH ×2 (09:38→22:29)
[2020-08-30] MEDS: Lidocaine 5% 700 MG Patch TRDERM SCH (09:39)
[2020-08-30] MEDS: [UNRECOGNIZED DRUG - OTHER] TOP SCH ×2 (10:30→22:35)
[2020-08-30] MEDS: Melatonin 3 MG Tab PO SCH (22:28)
[2020-08-30] MEDS: Potassium Chloride 10 MEQ Tab.ER PO SCH (22:28)
[2020-08-30] MEDS: traZODone 50 MG Tab PO SCH (22:29)
[2020-08-31] MEDS: Pantoprazole 40 MG Tab.CR PO SCH ×2 (05:04→16:19)
[2020-08-31] MEDS: oxyCODONE 5 MG Tab PO PRN ×3 (05:04→20:19)
[2020-08-31] MEDS: Acetaminophen 325 MG Tab PO SCH ×3 (08:04→20:18)
[2020-08-31] MEDS: Furosemide 20 MG Tab PO SCH (08:05)
[2020-08-31] MEDS: Iron Polysaccharides Complex 150 MG Cap PO SCH (08:05)
[2020-08-31] MEDS: LORazepam 1 MG Tab PO SCH ×2 (08:05→20:17)
[2020-08-31] MEDS: Multivitamins, Therapeutic with Minerals Tab PO SCH (08:05)
[2020-08-31] MEDS: Gabapentin 100 MG Cap PO SCH ×3 (08:06→20:16)
[2020-08-31] MEDS: Sertraline 50 MG Tab PO SCH (08:06)
[2020-08-31] MEDS: Lidocaine 5% 700 MG Patch TRDERM SCH (08:07)
[2020-08-31] MEDS: [UNRECOGNIZED DRUG - OTHER] TOP PRN ×2 (10:15→10:34)
[2020-08-31] MEDS: [UNRECOGNIZED DRUG - OTHER] TOP SCH ×2 (10:39→21:00)
[2020-08-31] MEDS: Melatonin 3 MG Tab PO SCH (20:16)
[2020-08-31] MEDS: Potassium Chloride 10 MEQ Tab.ER PO SCH (20:16)
[2020-08-31] MEDS: traZODone 50 MG Tab PO SCH (20:17)
[2020-09-01] MEDS: Pantoprazole 40 MG Tab.CR PO SCH ×2 (06:33→16:09)
[2020-09-01] MEDS: LORazepam 1 MG Tab PO SCH ×2 (09:34→21:17)
[2020-09-01] MEDS: Sertraline 50 MG Tab PO SCH (09:34)
[2020-09-01] MEDS: Furosemide 20 MG Tab PO SCH (09:34)
[2020-09-01] MEDS: Acetaminophen 325 MG Tab PO SCH ×3 (09:35→21:17)
[2020-09-01] MEDS: Multivitamins, Therapeutic with Minerals Tab PO SCH (09:35)
[2020-09-01] MEDS: Iron Polysaccharides Complex 150 MG Cap PO SCH (09:35)
[2020-09-01] MEDS: Gabapentin 100 MG Cap PO SCH ×3 (09:36→21:17)
[2020-09-01] MEDS: Lidocaine 5% 700 MG Patch TRDERM SCH (10:43)
[2020-09-01] MEDS: oxyCODONE 5 MG Tab PO PRN ×2 (10:44→21:16)
[2020-09-01] MEDS: [UNRECOGNIZED DRUG - OTHER] TOP PRN (12:34)
[2020-09-01] MEDS: [UNRECOGNIZED DRUG - OTHER] TOP SCH ×2 (14:56→21:18)
[2020-09-01] MEDS: Ibuprofen 400 MG Tab PO PRN (18:20)
[2020-09-01] MEDS: Potassium Chloride 10 MEQ Tab.ER PO SCH (21:17)
[2020-09-01] MEDS: traZODone 50 MG Tab PO SCH (21:17)
[2020-09-01] MEDS: Melatonin 3 MG Tab PO SCH (21:18)
[2020-09-02] MEDS: Ibuprofen 400 MG Tab PO PRN ×2 (02:39→17:25)
[2020-09-02] MEDS: Pantoprazole 40 MG Tab.CR PO SCH ×2 (05:48→17:26)
[2020-09-02] MEDS: oxyCODONE 5 MG Tab PO PRN ×3 (05:48→20:56)
[2020-09-02] MEDS: LORazepam 1 MG Tab PO SCH ×2 (09:09→20:55)
[2020-09-02] MEDS: Multivitamins, Therapeutic with Minerals Tab PO SCH (09:09)
[2020-09-02] MEDS: Iron Polysaccharides Complex 150 MG Cap PO SCH (09:10)
[2020-09-02] MEDS: Furosemide 20 MG Tab PO SCH (09:10)
[2020-09-02] MEDS: Lidocaine 5% 700 MG Patch TRDERM SCH (09:10)
[2020-09-02] MEDS: Acetaminophen 325 MG Tab PO SCH ×3 (09:11→20:56)
[2020-09-02] MEDS: Gabapentin 100 MG Cap PO SCH ×3 (09:13→20:55)
[2020-09-02] MEDS: Sertraline 50 MG Tab PO SCH (09:13)
[2020-09-02] MEDS: [UNRECOGNIZED DRUG - OTHER] TOP SCH ×2 (13:06→21:50)
[2020-09-02] MEDS: Melatonin 3 MG Tab PO SCH (20:55)
[2020-09-02] MEDS: traZODone 50 MG Tab PO SCH (20:55)
[2020-09-02] MEDS: Potassium Chloride 10 MEQ Tab.ER PO SCH (20:55)
[2020-09-03] MEDS: Ibuprofen 400 MG Tab PO PRN ×2 (03:23→15:02)
[2020-09-03] MEDS: Pantoprazole 40 MG Tab.CR PO SCH ×2 (05:25→14:59)
[2020-09-03] MEDS: Sertraline 50 MG Tab PO SCH (08:26)
[2020-09-03] MEDS: Iron Polysaccharides Complex 150 MG Cap PO SCH (08:27)
[2020-09-03] MEDS: Gabapentin 100 MG Cap PO SCH ×3 (08:27→21:26)
[2020-09-03] MEDS: Multivitamins, Therapeutic with Minerals Tab PO SCH (08:28)
[2020-09-03] MEDS: LORazepam 1 MG Tab PO SCH ×2 (08:28→21:27)
[2020-09-03] MEDS: Furosemide 20 MG Tab PO SCH (08:28)
[2020-09-03] MEDS: Acetaminophen 325 MG Tab PO SCH ×3 (08:29→21:27)
[2020-09-03] MEDS: Lidocaine 5% 700 MG Patch TRDERM SCH (08:30)
[2020-09-03] MEDS: oxyCODONE 5 MG Tab PO PRN ×2 (11:50→21:26)
[2020-09-03] MEDS: [UNRECOGNIZED DRUG - OTHER] TOP PRN ×2 (13:41→13:42)
[2020-09-03] MEDS: [UNRECOGNIZED DRUG - OTHER] TOP SCH ×2 (13:46→21:27)
[2020-09-03] MEDS: Potassium Chloride 10 MEQ Tab.ER PO SCH (21:27)
[2020-09-03] MEDS: Melatonin 3 MG Tab PO SCH (21:27)
[2020-09-03] MEDS: traZODone 50 MG Tab PO SCH (21:27)
[2020-09-04] MEDS: Ibuprofen 400 MG Tab PO PRN ×2 (01:09→19:20)
[2020-09-04] MEDS: oxyCODONE 5 MG Tab PO PRN ×3 (05:54→23:02)
[2020-09-04] MEDS: Pantoprazole 40 MG Tab.CR PO SCH ×2 (05:55→16:34)
[2020-09-04 07:19] LABS: ANION GAP 15.7 mEq/L (7-13); CHLORIDE,CL 106 mmol/L (98-107); SODIUM,NA 145 mmol/L (136-145)
[2020-09-04] MEDS: Lidocaine 5% 700 MG Patch TRDERM SCH (09:18)
[2020-09-04] MEDS: Furosemide 20 MG Tab PO SCH (09:19)
[2020-09-04] MEDS: Iron Polysaccharides Complex 150 MG Cap PO SCH (09:19)
[2020-09-04] MEDS: Gabapentin 100 MG Cap PO SCH ×3 (09:19→21:21)
[2020-09-04] MEDS: Multivitamins, Therapeutic with Minerals Tab PO SCH (09:19)
[2020-09-04] MEDS: LORazepam 1 MG Tab PO SCH ×3 (09:20→21:21)
[2020-09-04] MEDS: Acetaminophen 325 MG Tab PO SCH ×3 (09:21→21:21)
[2020-09-04] MEDS: Sertraline 50 MG Tab PO SCH (09:21)
--- NOTE | 2020-09-04 10:15 | CR ---
PROCEDURE INFORMATION: Exam: XR Chest Exam date and time: 09/04/2020 9:45 AM Age: 65 years old Clinical indication: Abnormal findings; Abnormal radiologic exam of lung or chest; Additional info: F/up pleural effusions TECHNIQUE: Imaging protocol: XR of the chest Views: 2 views. COMPARISON: CT Chest Abdomen Pelvis w Cont 08/11/2020 8:23 AM FINDINGS: Lungs: Right upper lobe emphysema and subpleural scarring. The lungs are otherwise clear. Pleural spaces: No pleural effusion or pneumothorax. Heart/Mediastinum: Normal heart and cardio-mediastinal silhouette. Vasculature: Normal pulmonary vessels and width of the vascular pedicle. Bones/joints: Intact and normally aligned. IMPRESSION: Right lung scarring and emphysema. No acute disease. Negative for pleural effusion.
--- NOTE | 2020-09-04 10:21 | PCM.PN ---
- General Info Date of Service: 09/04/20 Admission Dx/Problem (Free Text): Weight appears to have plateaued. Mood is improved. She is began to walk w/ a walker short distances. Had a visit w/ wound care at [place] and no new recs made. - Review of Systems Systems Review Comment:: Negative for 14 systems except as specifically noted above - Patient Data Vitals - Most Recent: Last Vital Signs Temp 97.2 F 09/04/20 08:00 Pulse 87 09/04/20 08:00 Resp 18 09/04/20 08:00 BP 121/74 09/04/20 08:00 Pulse Ox 99 09/04/20 08:00 Weight - Most Recent: 92 lb 9.6 oz I&O - Last 24 Hours: Intake & Output 09/03/20 09/04/20 09/04/20 22:59 06:59 14:59 Intake Total 850 500 Balance 850 500 Lab Results Last 24 Hours: Laboratory Results - last 24 hr 09/04/20 09/04/20 09/04/20 Range/Units 06:25 06:25 06:25 WBC 5.3 (5.0-10.0) 10^3/uL RBC 2.79 L (4.2-5.4) 10^6/uL Hgb 8.6 L (12.0-16.0) g/dL Hct 27.1 L (37.0-47.0) % MCV 97.1 (80-100) fL MCH 30.8 (27.0-34.0) pg MCHC 31.7 L (33.0-35.0) g/dL Plt Count 353 (150-450) 10^3/uL Sodium 145 (136-145) mmol/L Potassium 4.7 (3.5-5.1) mmol/L Chloride 106 (98-107) mmol/L Carbon Dioxide 28 (21-32) mmol/L Anion Gap 15.7 H (7-13) mEq/L BUN 29 H (7-18) mg/dL Creatinine 0.71 (0.55-1.02) mg/dL Est Cr Clr Drug Dosing 53.08 mL/min Estimated GFR (MDRD) > 60 Glucose 86 (74-99) mg/dL Calcium 8.4 L (8.5-10.1) mg/dL Iron 56 (50-175) ug/dL TIBC 254 (250-450) ug/dL % Saturation 22.0 (20.0-50.0) % Ferritin 140 (8-252) mg/mL Vitamin B12 439 (193-986) pg/mL Folate 18.6 (8.6-58.9) ng/mL Med Orders - Current: Current Medications Acetaminophen (Tylenol) 650 mg PO TID [facility] Last Admin: 09/04/20 09:21 Dose: 650 mg Documented by: Acetaminophen (Tylenol Extra Strength) 1,000 mg PO Q8H PRN PRN Reason: Pain/Fever Last Admin: 08/29/20 06:48 Dose: 1,000 mg Documented by: Dicyclomine HCl (Bentyl) 10 mg PO Q6H PRN PRN Reason: crampy abd pain Gabapentin (Neurontin) 200 mg PO TID [facility] Last Admin: 09/04/20 09:19 Dose: 200 mg Documented by: Ibuprofen (Motrin) 400 mg PO Q4H PRN PRN Reason: Pain Last Admin: 09/04/20 01:09 Dose: 400 mg Documented by: Influenza Virus Vaccine (Pharmacy To Dose - Influenza Vaccine) 1 each IM DAILY [facility] Last Admin: 09/04/20 10:10 Dose: Not Given Documented by: Lidocaine (Lidoderm 5%) 700 mg TRDERM DAILY [facility] Last Admin: 09/04/20 09:18 Dose: 700 mg Documented by: Lorazepam (Ativan) 1 mg PO BID [facility] Last Admin: 09/04/20 09:20 Dose: 1 mg Documented by: Melatonin (Melatonin) 3 mg PO BEDTIME [facility] Last Admin: 09/03/20 21:27 Dose: 3 mg Documented by: Miscellaneous Information (Remove Patch) 1 ea TRDERM BEDTIME [facility] Last Admin: 09/03/20 21:28 Dose: 1 ea Documented by: Multivitamins/Minerals (Vitamins And Minerals) 1 tab PO WITHBREAKFAST [facility] Last Admin: 09/04/20 09:19 Dose: 1 tab Documented by: H-Chlor 12 0.125% (Soln) 0 each TOP BID [facility] Last Admin: 09/03/20 21:27 Dose: 1 each Documented by: H-Chlor 12 0.125% (Soln) 0 each TOP ASDIRECTED PRN PRN Reason: WOUND CARE Last Admin: 09/01/20 12:34 Dose: 1 each Documented by: Ondansetron HCl (Zofran Odt) 4 mg PO Q6H PRN PRN Reason: Nausea Oxycodone HCl (Oxycodone) 5 mg PO Q6H PRN PRN Reason: MODERATE TO SEVERE PAIN Last Admin: 09/04/20 05:54 Dose: 5 mg Documented by: Pantoprazole Sodium (Protonix) 40 mg PO BIDAC [facility] Last Admin: 09/04/20 05:55 Dose: 40 mg Documented by: Polysaccharide Iron Complex (Ferrex 150) 150 mg PO DAILY [facility] Last Admin: 09/04/20 09:19 Dose: 150 mg Documented by: Sertraline HCl (Zoloft) 25 mg PO DAILY [facility] Last Admin: 09/04/20 09:21 Dose: 25 mg Documented by: Trazodone HCl (Trazodone) 50 mg PO BEDTIME [facility] Last Admin: 09/03/20 21:27 Dose: 50 mg Documented by: Discontinued Medications Acetaminophen (Tylenol) 650 mg PO Q4H PRN PRN Reason: Pain (Mild 1-3)/fever Last Admin: 08/11/20 14:12 Dose: 650 mg Documented by: Acetaminophen (Tylenol) 650 mg PO BID [facility] Hydrocodone Bitart/Acetaminophen ([place] 325-5 Mg) 1 tab PO Q4H PRN PRN Reason: Pain (moderate 4-6) Last Admin: 08/22/20 05:51 Dose: 1 tab Documented by: Barium Sulfate (Readi-Cat 2) 450 ml PO Q1H [facility] Stop: 08/11/20 08:01 Last Admin: 08/11/20 08:16 Dose: 450 ml Documented by: Fentanyl (Duragesic) 12 mcg TRDERM Q72H [facility] Last Admin: 08/21/20 18:07 Dose: 12 mcg Documented by: Furosemide (Lasix) 20 mg PO DAILY [facility] Last Admin: 09/04/20 09:19 Dose: 20 mg Documented by: Heparin Sodium (Porcine) (Heparin Sodium) 5,000 units SUBCUT Q8HR [facility] Last Admin: 08/11/20 05:48 Dose: 5,000 units Documented by: Piperacillin Sod/Tazobactam (Sod 3.375 gm/ Sodium Chloride) 100 mls @ 200 mls/hr IV Q6H [facility] Piperacillin Sod/Tazobactam (Sod 3.375 gm/ Sodium Chloride) 100 mls @ 200 mls/hr IV Q8H [facility] Last Infusion: 08/13/20 08:20 Dose: Infused Documented by: Piperacillin Sod/Tazobactam (Sod 3.375 gm/ Sodium Chloride) 100 mls @ 200 mls/hr IV ONETIME ONE Stop: 08/10/20 16:29 Last Admin: 08/10/20 16:41 Dose: 200 mls/hr Documented by: Iopamidol (Isovue-300 (61%)) 100 ml IVPUSH ONETIME ONE Stop: 08/10/20 15:41 Last Admin: 08/10/20 22:45 Dose: Not Given Documented by: Iopamidol (Isovue-300 (61%)) 100 ml IVPUSH ONETIME ONE Stop: 08/11/20 09:01 Last Admin: 08/11/20 09:19 Dose: 100 ml Documented by: Lorazepam (Ativan) 1 mg PO Q6H PRN PRN Reason: anxiety, headache Last Admin: 08/11/20 14:12 Dose: 1 mg Documented by: Lorazepam (Ativan) 0.5 mg PO BID [facility] Lorazepam (Ativan) 1 mg PO ONETIME ONE Stop: 08/14/20 15:48 Last Admin: 08/14/20 16:04 Dose: 1 mg Documented by: Magnesium Oxide (Magnesium Oxide) 250 mg PO BIDMEALS [facility] Stop: 08/12/20 18:01 Last Admin: 08/12/20 17:09 Dose: 250 mg Documented by: Magnesium Oxide (Magnesium Oxide) 250 mg PO BID@0800,1800 [facility] Stop: 08/14/20 08:01 Last Admin: 08/14/20 08:11 Dose: 250 mg Documented by: Miscellaneous Information (Remove Patch) 1 ea TRDERM Q24H [facility] Last Admin: 08/23/20 17:29 Dose: Not Given Documented by: Miscellaneous Medication (Medihoney) 0 ml TP BID [facility] Last Admin: 08/18/20 09:20 Dose: 1 ml Documented by: Miscellaneous Medication (Medihoney) 0 ml TP ASDIRECTED PRN PRN Reason: IF SOILED Miscellaneous Medication (Medihoney) 0 ml TP BID [facility] Last Admin: 08/23/20 09:06 Dose: 1 ml Documented by: Miscellaneous Medication (Medihoney) 0 ml TP ASDIRECTED PRN PRN Reason: IF SOILED Naproxen (Naprosyn) 250 mg PO Q12HR [facility] Last Admin: 08/12/20 09:11 Dose: 250 mg Documented by: Miconazole Nitrate (Cream 2%) 0 each TOP BID [facility] Last Admin: 08/25/20 11:07 Dose: 1 each Documented by: Ondansetron HCl (Zofran) 4 mg IVPUSH Q6H PRN PRN Reason: Nausea/Vomiting Potassium Chloride (Klor-Con 10) 20 meq PO BEDTIME [facility] Last Admin: 09/03/20 21:27 Dose: 20 meq Documented by: Sertraline HCl (Zoloft) 25 mg PO BEDTIME [facility] Last Admin: 08/21/20 21:43 Dose: 25 mg Documented by: Sertraline HCl (Zoloft) 25 mg PO 1600 ONE Stop: 08/22/20 16:01 Last Admin: 08/22/20 15:52 Dose: 25 mg Documented by: Sodium Chloride (Saline Flush) 10 ml FLUSH ASDIRECTED PRN PRN Reason: Keep Vein Open Last Admin: 08/24/20 20:53 Dose: 10 ml Documented by: Temazepam (Restoril) 15 mg PO BEDTIME PRN PRN Reason: Sleep Last Admin: 08/11/20 02:16 Dose: 15 mg Documented by: Vancomycin HCl (Vancocin 125 Mg Capsule) 125 mg PO QID [facility] Stop: 08/20/20 23:59 Last Admin: 08/20/20 21:43 Dose: 125 mg Documented by: - Exam Quality Assessment: No: Supplemental Oxygen General: Alert, Oriented HEENT: Pupils Equal Neck: Supple Lungs: Clear to Auscultation, Normal Respiratory Effort Cardiovascular: Regular Rate, Regular Rhythm, No Murmurs Back Exam: Other (qarter sized stage 4 decubitus ulcer w/ yellowish base. No drainage. No cellulitis) Extremities: Other (cachectic extremities) Skin: Warm, Dry Neurological: No New Focal Deficit Psy/Mental Status: Alert, Normal Affect, Normal Mood - Patient Data Lab Results Last 24 hrs: Laboratory Results - last 24 hr 09/04/20 09/04/20 09/04/20 Range/Units 06:25 06:25 06:25 WBC 5.3 (5.0-10.0) 10^3/uL RBC 2.79 L (4.2-5.4) 10^6/uL Hgb 8.6 L (12.0-16.0) g/dL Hct 27.1 L (37.0-47.0) % MCV 97.1 (80-100) fL MCH 30.8 (27.0-34.0) pg MCHC 31.7 L (33.0-35.0) g/dL Plt Count 353 (150-450) 10^3/uL Sodium 145 (136-145) mmol/L Potassium 4.7 (3.5-5.1) mmol/L Chloride 106 (98-107) mmol/L Carbon Dioxide 28 (21-32) mmol/L Anion Gap 15.7 H (7-13) mEq/L BUN 29 H (7-18) mg/dL Creatinine 0.71 (0.55-1.02) mg/dL Est Cr Clr Drug Dosing 53.08 mL/min Estimated GFR (MDRD) > 60 Glucose 86 (74-99) mg/dL Calcium 8.4 L (8.5-10.1) mg/dL Iron 56 (50-175) ug/dL TIBC 254 (250-450) ug/dL % Saturation 22.0 (20.0-50.0) % Ferritin 140 (8-252) mg/mL Vitamin B12 439 (193-986) pg/mL Folate 18.6 (8.6-58.9) ng/mL Result Diagrams: 09/04/20 06:25 09/04/20 06:25 Sepsis Event Note - Evaluation Sepsis Screening Result: No Definite Risk - Focused Exam Vital Signs: Vital Signs Temp Pulse Resp BP Pulse Ox 09/04/20 08:00 97.2 F 87 18 121/74 99 - Problem List Review Problem List Initiated/Reviewed/Updated: No - Plan Plan:: #severe calorie and protein malnutrition - off TPN now - weight appears to have plateaued but strength is improving - she is beginning to walk now #b/l pleural effusions - CXR repeated today and completely normal - d/c lasix/potassium #anemia of chronic disease - h/h stable and slightly up today - iron stores improved - above threshold for transfusion - likely to improve w/ nutritional status and healing of decubitus #stage 4 decubitus ulcer on coccyx - followed by wound care at [facility] - c/w Dakin's solution #hx Cdiff colitis - completed course of PO vanco - diarrhea resolved #acute hypoxic respiratory failure 2/2 pneumonia - resolved #hx seizure - off meds #anxiety and depression - mood improved - on zoloft - will d/w pt to try to wean benzos PPX - SCDs since weight was deemed too low for lovenox/SQH Full code Brother updated intermittently at bedside during the week
[2020-09-04] MEDS: [UNRECOGNIZED DRUG - OTHER] TOP SCH ×2 (14:52→21:22)
[2020-09-04] MEDS ORDERED: oxyCODONE 5 MG Tab PO PRN (14:55)
[2020-09-04] MEDS: Melatonin 3 MG Tab PO SCH (21:21)
[2020-09-04] MEDS: traZODone 50 MG Tab PO SCH (21:21)
[2020-09-05] MEDS: Gabapentin 100 MG Cap PO SCH ×3 (08:56→21:20)
[2020-09-05] MEDS: Iron Polysaccharides Complex 150 MG Cap PO SCH (08:56)
[2020-09-05] MEDS: Acetaminophen 325 MG Tab PO SCH ×3 (08:56→21:21)
[2020-09-05] MEDS: Multivitamins, Therapeutic with Minerals Tab PO SCH (08:56)
[2020-09-05] MEDS: Sertraline 50 MG Tab PO SCH (08:57)
[2020-09-05] MEDS: LORazepam 1 MG Tab PO SCH (08:58)
[2020-09-05] MEDS: oxyCODONE 5 MG Tab PO PRN ×2 (08:59→21:21)
[2020-09-05] MEDS: Lidocaine 5% 700 MG Patch TRDERM SCH (09:04)
[2020-09-05] MEDS: Pantoprazole 40 MG Tab.CR PO SCH ×2 (12:04→15:47)
[2020-09-05] MEDS: Ibuprofen 400 MG Tab PO PRN (15:45)
[2020-09-05] MEDS: [UNRECOGNIZED DRUG - OTHER] TOP SCH ×2 (16:35→21:20)
[2020-09-05] MEDS: LORazepam 0.5 MG Tab PO SCH (21:20)
[2020-09-05] MEDS: Melatonin 3 MG Tab PO SCH (21:20)
[2020-09-05] MEDS: traZODone 50 MG Tab PO SCH (21:20)
[2020-09-06] MEDS: Ibuprofen 400 MG Tab PO PRN ×3 (02:12→19:38)
[2020-09-06] MEDS: Pantoprazole 40 MG Tab.CR PO SCH ×2 (05:58→17:16)
[2020-09-06] MEDS: Lidocaine 5% 700 MG Patch TRDERM SCH (08:30)
[2020-09-06] MEDS: oxyCODONE 5 MG Tab PO PRN ×2 (08:32→21:23)
[2020-09-06] MEDS: Acetaminophen 325 MG Tab PO SCH ×3 (08:32→21:22)
[2020-09-06] MEDS: Gabapentin 100 MG Cap PO SCH ×3 (08:33→21:21)
[2020-09-06] MEDS: Iron Polysaccharides Complex 150 MG Cap PO SCH (08:33)
[2020-09-06] MEDS: Multivitamins, Therapeutic with Minerals Tab PO SCH (08:33)
[2020-09-06] MEDS: LORazepam 0.5 MG Tab PO SCH ×2 (08:33→21:22)
[2020-09-06] MEDS: Sertraline 50 MG Tab PO SCH (08:34)
--- NOTE | 2020-09-06 09:51 | PCM.PN ---
- General Info Date of Service: 09/06/20 Admission Dx/Problem (Free Text): No complaints. We discussed new pain and anxiolytic regimen. - Review of Systems General: Denies: Fever HEENT: Denies: Headaches Pulmonary: Denies: Shortness of Breath, Cough Cardiovascular: Denies: Chest Pain Gastrointestinal: Denies: Abdominal Pain Genitourinary: Denies: Dysuria Musculoskeletal: Denies: Neck Pain Skin: Denies: Diaphoresis Neurological: Denies: Confusion Psychiatric: Denies: Anxiety - Patient Data Vitals - Most Recent: Last Vital Signs Temp 96.5 F L 09/06/20 08:00 Pulse 69 09/06/20 08:00 Resp 16 09/06/20 08:00 BP 117/74 09/06/20 08:00 Pulse Ox 100 09/06/20 08:00 Weight - Most Recent: 96 lb 12.8 oz I&O - Last 24 Hours: Intake & Output 09/05/20 09/06/20 09/06/20 22:59 06:59 14:59 Intake Total 540 Balance 540 Med Orders - Current: Current Medications Acetaminophen (Acetaminophen 325 Mg Tab) 650 mg PO TID [facility] Last Admin: 09/06/20 08:32 Dose: 650 mg Documented by: Acetaminophen (Tylenol Extra Strength) 1,000 mg PO Q8H PRN PRN Reason: Pain/Fever Last Admin: 08/29/20 06:48 Dose: 1,000 mg Documented by: Dicyclomine HCl (Bentyl) 10 mg PO Q6H PRN PRN Reason: crampy abd pain Gabapentin (Gabapentin 100 Mg Cap) 200 mg PO TID [facility] Last Admin: 09/06/20 08:33 Dose: 200 mg Documented by: Ibuprofen (Ibuprofen 400 Mg Tab) 400 mg PO Q4H PRN PRN Reason: Pain Last Admin: 09/06/20 02:12 Dose: 400 mg Documented by: Influenza Virus Vaccine (Pharmacy To Dose - Influenza Vaccine) 1 each IM DAILY [facility] Last Admin: 09/06/20 08:39 Dose: Not Given Documented by: Lidocaine (Lidocaine 5% 700 Mg Patch) 700 mg TRDERM DAILY [facility] Last Admin: 09/06/20 08:30 Dose: 700 mg Documented by: Lorazepam (Lorazepam 0.5 Mg Tab) 0.5 mg PO BID [facility] Last Admin: 09/06/20 08:33 Dose: 0.5 mg Documented by: Melatonin (Melatonin) 3 mg PO BEDTIME [facility] Last Admin: 09/05/20 21:20 Dose: 3 mg Documented by: Miscellaneous Information (Remove Patch) 1 ea TRDERM BEDTIME [facility] Last Admin: 09/05/20 21:24 Dose: 1 ea Documented by: Multivitamins/Minerals (Multivitamins, Therapeutic With Minerals Tab) 1 tab PO WITHBREAKFAST [facility] Last Admin: 09/06/20 08:33 Dose: 1 tab Documented by: H-Chlor 12 0.125% (Soln) 0 each TOP BID [facility] Last Admin: 09/05/20 21:20 Dose: 1 each Documented by: H-Chlor 12 0.125% (Soln) 0 each TOP ASDIRECTED PRN PRN Reason: WOUND CARE Last Admin: 09/01/20 12:34 Dose: 1 each Documented by: Ondansetron HCl (Zofran Odt) 4 mg PO Q6H PRN PRN Reason: Nausea Oxycodone HCl (Oxycodone 5 Mg Tab) 2.5 mg PO Q8H PRN PRN Reason: MODERATE TO SEVERE PAIN Last Admin: 09/06/20 08:32 Dose: 2.5 mg Documented by: Pantoprazole Sodium (Pantoprazole 40 Mg Tab.Cr) 40 mg PO BIDAC [facility] Last Admin: 09/06/20 05:58 Dose: 40 mg Documented by: Polysaccharide Iron Complex (Iron Polysaccharides Complex 150 Mg Cap) 150 mg PO DAILY [facility] Last Admin: 09/06/20 08:33 Dose: 150 mg Documented by: Sertraline HCl (Sertraline 50 Mg Tab) 25 mg PO DAILY [facility] Last Admin: 09/06/20 08:34 Dose: 25 mg Documented by: Trazodone HCl (Trazodone) 50 mg PO BEDTIME [facility] Last Admin: 09/05/20 21:20 Dose: 50 mg Documented by: Discontinued Medications Acetaminophen (Tylenol) 650 mg PO Q4H PRN PRN Reason: Pain (Mild 1-3)/fever Last Admin: 08/11/20 14:12 Dose: 650 mg Documented by: Acetaminophen (Tylenol) 650 mg PO BID [facility] Hydrocodone Bitart/Acetaminophen ([place] 325-5 Mg) 1 tab PO Q4H PRN PRN Reason: Pain (moderate 4-6) Last Admin: 08/22/20 05:51 Dose: 1 tab Documented by: Barium Sulfate (Readi-Cat 2) 450 ml PO Q1H [facility] Stop: 08/11/20 08:01 Last Admin: 08/11/20 08:16 Dose: 450 ml Documented by: Fentanyl (Duragesic) 12 mcg TRDERM Q72H [facility] Last Admin: 08/21/20 18:07 Dose: 12 mcg Documented by: Furosemide (Lasix) 20 mg PO DAILY [facility] Last Admin: 09/04/20 09:19 Dose: 20 mg Documented by: Heparin Sodium (Porcine) (Heparin Sodium) 5,000 units SUBCUT Q8HR [facility] Last Admin: 08/11/20 05:48 Dose: 5,000 units Documented by: Piperacillin Sod/Tazobactam (Sod 3.375 gm/ Sodium Chloride) 100 mls @ 200 mls/hr IV Q6H [facility] Piperacillin Sod/Tazobactam (Sod 3.375 gm/ Sodium Chloride) 100 mls @ 200 mls/hr IV Q8H [facility] Last Infusion: 08/13/20 08:20 Dose: Infused Documented by: Piperacillin Sod/Tazobactam (Sod 3.375 gm/ Sodium Chloride) 100 mls @ 200 mls/hr IV ONETIME ONE Stop: 08/10/20 16:29 Last Admin: 08/10/20 16:41 Dose: 200 mls/hr Documented by: Iopamidol (Isovue-300 (61%)) 100 ml IVPUSH ONETIME ONE Stop: 08/10/20 15:41 Last Admin: 08/10/20 22:45 Dose: Not Given Documented by: Iopamidol (Isovue-300 (61%)) 100 ml IVPUSH ONETIME ONE Stop: 08/11/20 09:01 Last Admin: 08/11/20 09:19 Dose: 100 ml Documented by: Lorazepam (Ativan) 1 mg PO Q6H PRN PRN Reason: anxiety, headache Last Admin: 08/11/20 14:12 Dose: 1 mg Documented by: Lorazepam (Ativan) 0.5 mg PO BID [facility] Lorazepam (Ativan) 1 mg PO BID [facility] Last Admin: 09/04/20 21:10 Dose: Not Given Documented by: Lorazepam (Ativan) 1 mg PO ONETIME ONE Stop: 08/14/20 15:48 Last Admin: 08/14/20 16:04 Dose: 1 mg Documented by: Lorazepam (Lorazepam 1 Mg Tab) 0.5 mg PO BID [facility] Last Admin: 09/05/20 08:58 Dose: 0.5 mg Documented by: Magnesium Oxide (Magnesium Oxide) 250 mg PO BIDMEALS [facility] Stop: 08/12/20 18:01 Last Admin: 08/12/20 17:09 Dose: 250 mg Documented by: Magnesium Oxide (Magnesium Oxide) 250 mg PO BID@0800,1800 [facility] Stop: 08/14/20 08:01 Last Admin: 08/14/20 08:11 Dose: 250 mg Documented by: Miscellaneous Information (Remove Patch) 1 ea TRDERM Q24H [facility] Last Admin: 08/23/20 17:29 Dose: Not Given Documented by: Miscellaneous Medication (Medihoney) 0 ml TP BID [facility] Last Admin: 08/18/20 09:20 Dose: 1 ml Documented by: Miscellaneous Medication (Medihoney) 0 ml TP ASDIRECTED PRN PRN Reason: IF SOILED Miscellaneous Medication (Medihoney) 0 ml TP BID [facility] Last Admin: 08/23/20 09:06 Dose: 1 ml Documented by: Miscellaneous Medication (Medihoney) 0 ml TP ASDIRECTED PRN PRN Reason: IF SOILED Naproxen (Naprosyn) 250 mg PO Q12HR [facility] Last Admin: 08/12/20 09:11 Dose: 250 mg Documented by: Miconazole Nitrate (Cream 2%) 0 each TOP BID [facility] Last Admin: 08/25/20 11:07 Dose: 1 each Documented by: Ondansetron HCl (Zofran) 4 mg IVPUSH Q6H PRN PRN Reason: Nausea/Vomiting Oxycodone HCl (Oxycodone) 5 mg PO Q6H PRN PRN Reason: MODERATE TO SEVERE PAIN Last Admin: 09/04/20 14:50 Dose: 5 mg Documented by: Oxycodone HCl (Oxycodone) 2.5 mg PO Q12H PRN PRN Reason: MODERATE TO SEVERE PAIN Potassium Chloride (Klor-Con 10) 20 meq PO BEDTIME [facility] Last Admin: 09/03/20 21:27 Dose: 20 meq Documented by: Sertraline HCl (Zoloft) 25 mg PO BEDTIME [facility] Last Admin: 08/21/20 21:43 Dose: 25 mg Documented by: Sertraline HCl (Zoloft) 25 mg PO 1600 ONE Stop: 08/22/20 16:01 Last Admin: 08/22/20 15:52 Dose: 25 mg Documented by: Sodium Chloride (Saline Flush) 10 ml FLUSH ASDIRECTED PRN PRN Reason: Keep Vein Open Last Admin: 08/24/20 20:53 Dose: 10 ml Documented by: Temazepam (Restoril) 15 mg PO BEDTIME PRN PRN Reason: Sleep Last Admin: 08/11/20 02:16 Dose: 15 mg Documented by: Vancomycin HCl (Vancocin 125 Mg Capsule) 125 mg PO QID [facility] Stop: 08/20/20 23:59 Last Admin: 08/20/20 21:43 Dose: 125 mg Documented by: - Exam Quality Assessment: No: Supplemental Oxygen General: Alert, Oriented, Cooperative HEENT: Pupils Equal Neck: Supple Lungs: Clear to Auscultation, Normal Respiratory Effort Cardiovascular: Regular Rate, Regular Rhythm, No Murmurs GI/Abdominal Exam: Normal Bowel Sounds, Soft, Non-Tender, No Distention Back Exam: Normal Inspection Extremities: No Pedal Edema, Other (atrophic LE) Skin: Warm, Dry Wound/Incisions: Healing Well Neurological: No New Focal Deficit Psy/Mental Status: Alert, Normal Affect - Patient Data Result Diagrams: 09/04/20 06:25 09/04/20 06:25 Sepsis Event Note - Evaluation Sepsis Screening Result: No Definite Risk - Focused Exam Vital Signs: Vital Signs Temp Pulse Resp BP Pulse Ox 09/06/20 08:00 96.5 F L 69 16 117/74 100 - Problem List Review Problem List Initiated/Reviewed/Updated: No - My Orders Last 24 Hours: My Active Orders 09/05/20 11:12 LORazepam [Ativan] 0.5 mg PO BID - Plan Plan:: #severe calorie and protein malnutrition - off TPN now - weight appears to have plateaued but strength is improving - she is beginning to walk now #b/l pleural effusions - CXR repeated today and completely normal - d/c lasix/potassium #anemia of chronic disease - h/h stable and slightly up today - iron stores improved - above threshold for transfusion - likely to improve w/ nutritional status and healing of decubitus #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 This requires stabilization to allow healing or prevent further injury. The patient would increase their functionality by using a custom fit posterior leaf spring AFO. This AFO will assist the patient with her foot drop to prevent her from catching her toe while ambulating.
[2020-09-06] MEDS: [UNRECOGNIZED DRUG - OTHER] TOP SCH ×2 (14:32→21:28)
[2020-09-06] MEDS ORDERED: Mirtazapine 15 MG Tab PO SCH (21:00)
[2020-09-06] MEDS: traZODone 50 MG Tab PO SCH (21:21)
[2020-09-06] MEDS: Melatonin 3 MG Tab PO SCH (21:22)
[2020-09-06] MEDS: [UNRECOGNIZED DRUG - OTHER] TOP PRN (21:27)
[2020-09-07] MEDS: Ibuprofen 400 MG Tab PO PRN (04:36)
[2020-09-07] MEDS: Pantoprazole 40 MG Tab.CR PO SCH ×3 (04:37→17:00)
[2020-09-07] MEDS: Lidocaine 5% 700 MG Patch TRDERM SCH (08:00)
[2020-09-07] MEDS: Gabapentin 100 MG Cap PO SCH ×3 (08:01→21:36)
[2020-09-07] MEDS: Acetaminophen 325 MG Tab PO SCH ×3 (08:01→21:32)
[2020-09-07] MEDS: Iron Polysaccharides Complex 150 MG Cap PO SCH (08:02)
[2020-09-07] MEDS: oxyCODONE 5 MG Tab PO PRN ×2 (08:07→21:34)
[2020-09-07] MEDS: Sertraline 50 MG Tab PO SCH (08:10)
[2020-09-07] MEDS: LORazepam 0.5 MG Tab PO SCH ×2 (08:10→21:36)
[2020-09-07] MEDS: Multivitamins, Therapeutic with Minerals Tab PO SCH (08:10)
[2020-09-07] MEDS ORDERED: FLU Vacc QS2020-21 36MOS UP/PF 60 MCG/0.5 ML Syringe IM ONE (10:45)
[2020-09-07] MEDS: [UNRECOGNIZED DRUG - OTHER] TOP SCH ×2 (10:47→22:06)
[2020-09-07] MEDS: traZODone 50 MG Tab PO SCH (21:36)
[2020-09-07] MEDS: Melatonin 3 MG Tab PO SCH (21:37)
[2020-09-08] MEDS: Ibuprofen 400 MG Tab PO PRN ×3 (01:11→16:47)
[2020-09-08] MEDS: Pantoprazole 40 MG Tab.CR PO SCH ×2 (06:12→16:45)
[2020-09-08] MEDS: Multivitamins, Therapeutic with Minerals Tab PO SCH (08:24)
[2020-09-08] MEDS: Sertraline 50 MG Tab PO SCH (08:24)
[2020-09-08] MEDS: Gabapentin 100 MG Cap PO SCH ×3 (08:24→20:22)
[2020-09-08] MEDS: LORazepam 0.5 MG Tab PO SCH ×2 (08:25→20:23)
[2020-09-08] MEDS: oxyCODONE 5 MG Tab PO PRN ×2 (08:25→20:23)
[2020-09-08] MEDS: Acetaminophen 325 MG Tab PO SCH ×3 (08:26→20:22)
[2020-09-08] MEDS: Iron Polysaccharides Complex 150 MG Cap PO SCH (08:26)
[2020-09-08] MEDS: Lidocaine 5% 700 MG Patch TRDERM SCH (08:28)
[2020-09-08] MEDS: [UNRECOGNIZED DRUG - OTHER] TOP SCH ×2 (09:04→20:56)
[2020-09-08] MEDS: traZODone 50 MG Tab PO SCH (20:23)
[2020-09-08] MEDS: Melatonin 3 MG Tab PO SCH (20:23)
[2020-09-09] MEDS: Ibuprofen 400 MG Tab PO PRN (05:42)
[2020-09-09] MEDS: Pantoprazole 40 MG Tab.CR PO SCH ×2 (05:43→16:31)
[2020-09-09] MEDS: Acetaminophen 325 MG Tab PO SCH ×3 (08:35→21:14)
[2020-09-09] MEDS: LORazepam 0.5 MG Tab PO SCH ×2 (08:37→21:15)
[2020-09-09] MEDS: Multivitamins, Therapeutic with Minerals Tab PO SCH (08:38)
[2020-09-09] MEDS: Gabapentin 100 MG Cap PO SCH ×3 (08:39→21:15)
[2020-09-09] MEDS: Iron Polysaccharides Complex 150 MG Cap PO SCH (08:39)
[2020-09-09] MEDS: Sertraline 50 MG Tab PO SCH (08:40)
[2020-09-09] MEDS: oxyCODONE 5 MG Tab PO PRN ×2 (08:41→21:14)
[2020-09-09] MEDS: Lidocaine 5% 700 MG Patch TRDERM SCH (08:42)
[2020-09-09] MEDS: [UNRECOGNIZED DRUG - OTHER] TOP SCH ×2 (08:51→21:29)
[2020-09-09] MEDS: Melatonin 3 MG Tab PO SCH (21:15)
[2020-09-09] MEDS: traZODone 50 MG Tab PO SCH (21:16)
[2020-09-10] MEDS: Ibuprofen 400 MG Tab PO PRN ×3 (03:41→16:12)
[2020-09-10] MEDS: Pantoprazole 40 MG Tab.CR PO SCH ×2 (06:51→16:13)
[2020-09-10] MEDS: Gabapentin 100 MG Cap PO SCH ×3 (08:09→20:58)
[2020-09-10] MEDS: Sertraline 50 MG Tab PO SCH (08:10)
[2020-09-10] MEDS: Iron Polysaccharides Complex 150 MG Cap PO SCH (08:11)
[2020-09-10] MEDS: LORazepam 0.5 MG Tab PO SCH ×2 (08:11→21:00)
[2020-09-10] MEDS: Multivitamins, Therapeutic with Minerals Tab PO SCH (08:11)
[2020-09-10] MEDS: Lidocaine 5% 700 MG Patch TRDERM SCH (08:13)
[2020-09-10] MEDS: Acetaminophen 325 MG Tab PO SCH ×3 (10:21→21:01)
[2020-09-10] MEDS: oxyCODONE 5 MG Tab PO PRN ×2 (10:22→20:59)
[2020-09-10] MEDS: [UNRECOGNIZED DRUG - OTHER] TOP SCH ×2 (10:23→21:03)
[2020-09-10] MEDS: Melatonin 3 MG Tab PO SCH (20:59)
[2020-09-10] MEDS: traZODone 50 MG Tab PO SCH (21:00)
[2020-09-11] MEDS: Ibuprofen 400 MG Tab PO PRN ×2 (00:56→06:57)
[2020-09-11] MEDS: Pantoprazole 40 MG Tab.CR PO SCH (06:57)
[2020-09-11] MEDS: Sertraline 50 MG Tab PO SCH (08:09)
[2020-09-11] MEDS: Iron Polysaccharides Complex 150 MG Cap PO SCH (08:10)
[2020-09-11] MEDS: Gabapentin 100 MG Cap PO SCH (08:10)
[2020-09-11] MEDS: Acetaminophen 325 MG Tab PO SCH (08:11)
[2020-09-11] MEDS: oxyCODONE 5 MG Tab PO PRN (08:12)
[2020-09-11] MEDS: Multivitamins, Therapeutic with Minerals Tab PO SCH (08:12)
[2020-09-11] MEDS: LORazepam 0.5 MG Tab PO SCH (08:13)
[2020-09-11] MEDS: [UNRECOGNIZED DRUG - OTHER] TOP SCH (08:14)
[2020-09-11] MEDS: Lidocaine 5% 700 MG Patch TRDERM SCH (08:14)
--- NOTE | 2020-09-11 09:26 | PCM.DCSUM1 ---
Discharge Summary - Hospital Course Free Text/Narrative:: 65F w/ pmh congenital hip dysplasia, seizures, malnutrition was originally a/w acute hypoxemic respiratory failure secondary to pneumonia. Hospitalization was complicated with acute kidney injury, urinary tract infection, sepsis with shock liver. The pt then progressed to a Swing Bed at [facility]. Her hospital stay here was c/b cdiff colitis for which she completed a course of oral vancomycin. She was also noted w/ residual b/l pleural effusions which resolved w/ improved nutritional status and low dose lasix. PT remains anemic likely due to malnutrition and anemia of chronic disease. Blood transfusions are not indicated. She is on iron supplements. Pt has been initiated on trazodone 50 and zoloft 25. She had also been on percocet and ativan which we have been trying to taper off. She is currently on ativan 0.5 bid and percocet 2.5 q8h prn. 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 - followed by wound care at - c/w Dakin's solution #hx Cdiff colitis - completed course of PO vanco - diarrhea resolved #acute hypoxic respiratory failure 2/2 pneumonia - resolved #hx seizure - off meds #anxiety and depression - mood improved - on zoloft and trazadone - d/w pt and cut back on percocet 5 q6 >>> 2.5 q8 and ativan 1 bid >>> 0.5 bid - Discharge Data Discharge Date: 09/11/20 Discharge Disposition: DC/Tfer to Psych Hosp/Unit [facility] Condition: Good - Referral to Home Health Primary Care Physician: PCP None - Patient Summary/Data Consults: Consultations 08/10/20 15:43 OT Evaluation and Treatment [CONS] Routine PT Evaluation and Treatment [CONS] Routine - Discharge Plan *PRESCRIPTION DRUG MONITORING PROGRAM REVIEWED*: Not Applicable *COPY OF PRESCRIPTION DRUG MONITORING REPORT IN PATIENT TELMA: Not Applicable Home Medications: Home Meds Gabapentin [Neurontin] 200 mg PO TID 08/10/20 [History] traZODone HCl [Trazodone HCl] 50 mg PO BEDTIME 08/10/20 [History] Acetaminophen [Tylenol Extra Strength] 1,000 mg PO Q8H PRN tablet 09/11/20 [Rx] Dicyclomine [Bentyl] 10 mg PO Q6H PRN cap 09/11/20 [Rx] Iron Polysaccharides Complex [Ferrex 150] 150 mg PO DAILY cap 09/11/20 [Rx] LORazepam [Ativan] 0.5 mg PO BID tablet 09/11/20 [Rx] Lidocaine 5% [Lidoderm 5%] 700 mg TRDERM DAILY patch 09/11/20 [Rx] Melatonin 3 mg PO BEDTIME tablet 09/11/20 [Rx] Multivitamins/Minerals [Vitamins and Minerals] 1 tab PO WITHBREAKFAST tablet 09/11/20 [Rx] Non-Formulary Medication [NF Drug] 0 each TOP ASDIRECTED PRN each 09/11/20 [Rx] Non-Formulary Medication [NF Drug] 0 each TOP BID each 09/11/20 [Rx] Ondansetron [Zofran ODT] 4 mg PO Q6H PRN tab.dis 09/11/20 [Rx] Pantoprazole [ProTONIX] 40 mg PO BIDAC tab.cr 09/11/20 [Rx] Remove Patch 1 ea TRDERM BEDTIME each 09/11/20 [Rx] Sertraline [Zoloft] 25 mg PO DAILY tablet 09/11/20 [Rx] oxyCODONE 2.5 mg PO Q8H PRN tablet 09/11/20 [Rx] traZODone 50 mg PO BEDTIME tablet 09/11/20 [Rx] - Discharge Summary/Plan Comment DC Time >30 min.: Yes (35 min) - Patient Data Vitals - Most Recent: Last Vital Signs Temp 98.2 F 09/11/20 08:07 Pulse 89 09/11/20 08:07 Resp 20 09/11/20 08:07 BP 114/86 09/11/20 08:07 Pulse Ox 98 09/11/20 08:07 Weight - Most Recent: 95 lb I&O - Last 24 hours: Intake & Output 09/10/20 09/11/2021 22:59 06:59 14:59 Intake Total 330 660 Balance 330 660 Med Orders - Current: Current Medications Acetaminophen (Acetaminophen 325 Mg Tab) 650 mg PO TID [facility] Last Admin: 09/11/20 08:11 Dose: 650 mg Documented by: Acetaminophen (Acetaminophen 500 Mg Tab) 1,000 mg PO Q8H PRN PRN Reason: Pain/Fever Last Admin: 08/29/20 06:48 Dose: 1,000 mg Documented by: Dicyclomine HCl (Dicyclomine 10 Mg Cap) 10 mg PO Q6H PRN PRN Reason: crampy abd pain Gabapentin (Gabapentin 100 Mg Cap) 200 mg PO TID [facility] Last Admin: 09/11/20 08:10 Dose: 200 mg Documented by: Ibuprofen (Ibuprofen 400 Mg Tab) 400 mg PO Q4H PRN PRN Reason: Pain Last Admin: 09/11/20 06:57 Dose: 400 mg Documented by: Lidocaine (Lidocaine 5% 700 Mg Patch) 700 mg TRDERM DAILY [facility] Last Admin: 09/11/20 08:14 Dose: 700 mg Documented by: Lorazepam (Lorazepam 0.5 Mg Tab) 0.5 mg PO BID [facility] Last Admin: 09/11/20 08:13 Dose: 0.5 mg Documented by: Melatonin (Melatonin 3 Mg Tab) 3 mg PO BEDTIME [facility] Last Admin: 09/10/20 20:59 Dose: 3 mg Documented by: Miscellaneous Information (Remove Lidocaine Patch) 1 ea TRDERM BEDTIME [facility] Last Admin: 09/10/20 21:03 Dose: 1 ea Documented by: Multivitamins/Minerals (Multivitamins, Therapeutic With Minerals Tab) 1 tab PO WITHBREAKFAST [facility] Last Admin: 09/11/20 08:12 Dose: 1 tab Documented by: H-Chlor 12 0.125% (Soln) 0 each TOP BID [facility] Last Admin: 09/11/20 08:14 Dose: 1 each Documented by: H-Chlor 12 0.125% (Soln) 0 each TOP ASDIRECTED PRN PRN Reason: WOUND CARE Last Admin: 09/01/20 12:34 Dose: 1 each Documented by: Ondansetron HCl (Ondansetron 4 Mg Tab.Dis) 4 mg PO Q6H PRN PRN Reason: Nausea Oxycodone HCl (Oxycodone 5 Mg Tab) 2.5 mg PO Q8H PRN PRN Reason: MODERATE TO SEVERE PAIN Last Admin: 09/11/20 08:12 Dose: 2.5 mg Documented by: Pantoprazole Sodium (Pantoprazole 40 Mg Tab.Cr) 40 mg PO BIDAC [facility] Last Admin: 09/11/20 06:57 Dose: 40 mg Documented by: Polysaccharide Iron Complex (Iron Polysaccharides Complex 150 Mg Cap) 150 mg PO DAILY [facility] Last Admin: 09/11/20 08:10 Dose: 150 mg Documented by: Sertraline HCl (Sertraline 50 Mg Tab) 25 mg PO DAILY [facility] Last Admin: 09/11/20 08:09 Dose: 25 mg Documented by: Trazodone HCl (Trazodone 50 Mg Tab) 50 mg PO BEDTIME [facility] Last Admin: 09/10/20 21:00 Dose: 50 mg Documented by: Discontinued Medications Acetaminophen (Acetaminophen 325 Mg Tab) 650 mg PO Q4H PRN PRN Reason: Pain (Mild 1-3)/fever Last Admin: 08/11/20 14:12 Dose: 650 mg Documented by: Acetaminophen (Acetaminophen 325 Mg Tab) 650 mg PO BID [facility] Hydrocodone Bitart/Acetaminophen (Acetaminophen/Hydrocodone 325-5 Mg Tab) 1 tab PO Q4H PRN PRN Reason: Pain (moderate 4-6) Last Admin: 08/22/20 05:51 Dose: 1 tab Documented by: Barium Sulfate (Barium Sulfate W/V 2.1% Oral Susp 450 Ml Bottle) 450 ml PO Q1H [facility] Stop: 08/11/20 08:01 Last Admin: 08/11/20 08:16 Dose: 450 ml Documented by: Fentanyl (Fentanyl 12 Mcg/Hr Transdermal Patch) 12 mcg TRDERM Q72H [facility] Last Admin: 08/21/20 18:07 Dose: 12 mcg Documented by: Furosemide (Furosemide 20 Mg Tab) 20 mg PO DAILY [facility] Last Admin: 09/04/20 09:19 Dose: 20 mg Documented by: Heparin Sodium (Porcine) (Heparin Sodium 5,000 Units/Ml Vial) 5,000 units SUBCUT Q8HR [facility] Last Admin: 08/11/20 05:48 Dose: 5,000 units Documented by: Piperacillin Sod/Tazobactam (Sod 3.375 gm/ Sodium Chloride) 100 mls @ 200 mls/hr IV Q6H [facility] Piperacillin Sod/Tazobactam (Sod 3.375 gm/ Sodium Chloride) 100 mls @ 200 mls/hr IV Q8H [facility] Last Infusion: 08/13/20 08:20 Dose: Infused Documented by: Piperacillin Sod/Tazobactam (Sod 3.375 gm/ Sodium Chloride) 100 mls @ 200 mls/hr IV ONETIME ONE Stop: 08/10/20 16:29 Last Admin: 08/10/20 16:41 Dose: 200 mls/hr Documented by: Influenza Virus Vaccine (Pharmacy To Dose - Influenza Vaccine) 1 each IM DAILY [facility] Last Admin: 09/07/20 12:11 Dose: Not Given Documented by: Influenza Virus Vaccine (Flu Vacc [id number] 36mos Up/Pf 60 Mcg/0.5 Ml Syringe) 60 mcg IM .ONCE ONE Stop: 09/07/20 10:46 Last Admin: 09/07/20 12:00 Dose: 60 mcg Documented by: Iopamidol (Iopamidol 612 Mg/Ml 100 Ml Bottle) 100 ml IVPUSH ONETIME ONE Stop: 08/10/20 15:41 Last Admin: 08/10/20 22:45 Dose: Not Given Documented by: Iopamidol (Iopamidol 612 Mg/Ml 100 Ml Bottle) 100 ml IVPUSH ONETIME ONE Stop: 08/11/20 09:01 Last Admin: 08/11/20 09:19 Dose: 100 ml Documented by: Lorazepam (Lorazepam 1 Mg Tab) 1 mg PO Q6H PRN PRN Reason: anxiety, headache Last Admin: 08/11/20 14:12 Dose: 1 mg Documented by: Lorazepam (Lorazepam 0.5 Mg Tab) 0.5 mg PO BID [facility] Lorazepam (Lorazepam 1 Mg Tab) 1 mg PO BID [facility] Last Admin: 09/04/20 21:10 Dose: Not Given Documented by: Lorazepam (Lorazepam 1 Mg Tab) 1 mg PO ONETIME ONE Stop: 08/14/20 15:48 Last Admin: 08/14/20 16:04 Dose: 1 mg Documented by: Lorazepam (Lorazepam 1 Mg Tab) 0.5 mg PO BID [facility] Last Admin: 09/05/20 08:58 Dose: 0.5 mg Documented by: Magnesium Oxide (Magnesium Oxide 250 Mg Tab) 250 mg PO BIDMEALS [facility] Stop: 08/12/20 18:01 Last Admin: 08/12/20 17:09 Dose: 250 mg Documented by: Magnesium Oxide (Magnesium Oxide 250 Mg Tab) 250 mg PO BID@0800,1800 [facility] Stop: 08/14/20 08:01 Last Admin: 08/14/20 08:11 Dose: 250 mg Documented by: Mirtazapine (Mirtazapine 15 Mg Tab) 15 mg PO BEDTIME [facility] Miscellaneous Information (Remove Patch) 1 ea TRDERM Q24H [facility] Last Admin: 08/23/20 17:29 Dose: Not Given Documented by: Miscellaneous Medication (Honey 44 Ml Gel) 0 ml TP BID [facility] Last Admin: 08/18/20 09:20 Dose: 1 ml Documented by: Miscellaneous Medication (Honey 44 Ml Gel) 0 ml TP ASDIRECTED PRN PRN Reason: IF SOILED Miscellaneous Medication (Honey 44 Ml Gel) 0 ml TP BID [facility] Last Admin: 08/23/20 09:06 Dose: 1 ml Documented by: Miscellaneous Medication (Honey 44 Ml Gel) 0 ml TP ASDIRECTED PRN PRN Reason: IF SOILED Naproxen (Naproxen 250 Mg Tab) 250 mg PO Q12HR [facility] Last Admin: 08/12/20 09:11 Dose: 250 mg Documented by: Miconazole Nitrate (Cream 2%) 0 each TOP BID [facility] Last Admin: 08/25/20 11:07 Dose: 1 each Documented by: Ondansetron HCl (Ondansetron 4 Mg/2 Ml Sdv) 4 mg IVPUSH Q6H PRN PRN Reason: Nausea/Vomiting Oxycodone HCl (Oxycodone 5 Mg Tab) 5 mg PO Q6H PRN PRN Reason: MODERATE TO SEVERE PAIN Last Admin: 09/04/20 14:50 Dose: 5 mg Documented by: Oxycodone HCl (Oxycodone 5 Mg Tab) 2.5 mg PO Q12H PRN PRN Reason: MODERATE TO SEVERE PAIN Potassium Chloride (Potassium Chloride 10 Meq Tab.Er) 20 meq PO BEDTIME [facility] Last Admin: 09/03/20 21:27 Dose: 20 meq Documented by: Sertraline HCl (Sertraline 50 Mg Tab) 25 mg PO BEDTIME [facility] Last Admin: 08/21/20 21:43 Dose: 25 mg Documented by: Sertraline HCl (Sertraline 50 Mg Tab) 25 mg PO 1600 ONE Stop: 08/22/20 16:01 Last Admin: 08/22/20 15:52 Dose: 25 mg Documented by: Sodium Chloride (Sodium Chloride 0.9% 10 Ml Syringe) 10 ml FLUSH ASDIRECTED PRN PRN Reason: Keep Vein Open Last Admin: 08/24/20 20:53 Dose: 10 ml Documented by: Temazepam (Temazepam 15 Mg Cap) 15 mg PO BEDTIME PRN PRN Reason: Sleep Last Admin: 08/11/20 02:16 Dose: 15 mg Documented by: Trazodone HCl (Trazodone 50 Mg Tab) 50 mg PO BEDTIME [facility] Last Admin: 09/05/20 21:20 Dose: 50 mg Documented by: Vancomycin HCl (Vancomycin 125 Mg Cap) 125 mg PO QID [facility] Stop: 08/20/20 23:59 Last Admin: 08/20/20 21:43 Dose: 125 mg Documented by: - Exam Quality Assessment: Denies: Supplemental Oxygen General: Reports: Alert, Oriented, Cooperative HEENT: Reports: Pupils Equal, Pupils Reactive Neck: Reports: Supple Lungs: Reports: Clear to Auscultation, Normal Respiratory Effort Cardiovascular: Reports: Regular Rate, Regular Rhythm GI/Abdominal Exam: Normal Bowel Sounds, Soft, Non-Tender, No Distention Extremities: No Pedal Edema Skin: Reports: Warm, Dry Neurological: Reports: No New Focal Deficit Psy/Mental Status: Reports: Alert, Normal Affect, Normal Mood Physical Findings Comments:: cachectic appearing, atrophic extremities
== END 2020-09-11 10:20 | DRG 947 ==
LOC: DL.MS 13:43 → UNDOADMIN 13:43 → DL.MS 15:40
PROVIDERS: ADMIT Internal Medicine; ATTEND Internal Medicine
DX: R53.1 Weakness (principal); L89.154 Pressure ulcer of sacral region, stage 4; J96.01 Acute respiratory failure with hypoxia; E43 Unspecified severe protein-calorie malnutrition; J69.0 Pneumonitis due to inhalation of food and vomit; J90 Pleural effusion, not elsewhere classified; A04.72 Enterocolitis due to Clostridium difficile, not specified as recurrent; D64.9 Anemia, unspecified; G40.909 Epilepsy, unspecified, not intractable, without status epilepticus; E55.9 Vitamin D deficiency, unspecified; D63.8 Anemia in other chronic diseases classified elsewhere; Z20.822 Contact with and (suspected) exposure to COVID-19; Q65.89 Other specified congenital deformities of hip; H54.7 Unspecified visual loss; I48.91 Unspecified atrial fibrillation; M19.90 Unspecified osteoarthritis, unspecified site; F41.9 Anxiety disorder, unspecified; F32.9 Major depressive disorder, single episode, unspecified; Z87.891 Personal history of nicotine dependence; Z96.643 Presence of artificial hip joint, bilateral; Z79.899 Other long term (current) drug therapy
CPT/HCPCS: 36415; 70450; 71046; 71260; 74177; 80048; 80053; 82607; 82728; 82746; 82962; 83540; 83550; 83735; 84100; 84145; 85025; 85027; 87086; 87324; 87493; 90686; 97110-GO; 97110-GP; 97116-GP; 97162-GP; 97167-GO; 97530-GO; 97535-GO; A9270-GY; G0008; J1644; J2543; Q9967; U0002